=== PATIENT | female | born 1980 | race Caucasian/White ===

== ENCOUNTER → 2018-04-15 14:57 | Outpatient (CLI) | payer MEDICARE, MEDICAID, SELFPAY ==
[2018-04-15 17:21] LABS: T3 Uptake 36 % (30-39); T4 Free Direct 0.74 ng/dL (0.76-1.46)
== END ==
PROVIDERS: Family Provider Family Medicine Geriatric Medicine; PCP Family Medicine Geriatric Medicine; Visit Provider Family Medicine Geriatric Medicine
DX: E03.9 Hypothyroidism, unspecified (principal)
CPT/HCPCS: 36415; 84439; 84443; 84479

== ENCOUNTER → 2018-04-30 08:56 | Outpatient (CLI) | payer MEDICARE, MEDICAID, SELFPAY ==
--- NOTE | 2018-04-30 08:56 | DT_ITS ---
This patient was seen during an EMR downtime April 26, 2018 - May 03, 2018. This patient may have a combination of paper and electronic documentation or all paper documentation. All documentation is viewable within the e-chart portion of [facility] for each patient visit.
[2018-04-30 14:49] LABS: Thyroid Stim Hormone (TSH) 3.06 uIU/mL (0.358-3.74)
== END ==
PROVIDERS: Family Provider Family Medicine Geriatric Medicine; PCP Family Medicine Geriatric Medicine; Visit Provider Family Medicine Geriatric Medicine
DX: E03.9 Hypothyroidism, unspecified (principal)
CPT/HCPCS: 36415; 84443

== ENCOUNTER → 2018-05-13 10:38 | Outpatient (CLI) | payer MEDICARE, MEDICAID, SELFPAY ==
[2018-05-13 13:09] LABS: Valproic Acid (Depakene) Level 80 ug/mL (50-100)
== END ==
PROVIDERS: Family Provider Family Medicine Geriatric Medicine; PCP Family Medicine Geriatric Medicine; Visit Provider Psychiatry & Neurology Psychiatry
DX: Z79.899 Other long term (current) drug therapy (principal)
CPT/HCPCS: 36415; 80164

== ENCOUNTER → 2019-09-22 09:15 | Outpatient (CLI) | payer MEDICARE, MEDICAID, SELFPAY ==
[2019-09-22 12:40] LABS: Absolute Lymphocyte Count 1.31 X10^3/uL (0.83-4.51); Absolute Neutrophil Count 4.1 X10^3/uL (2.0-7.7); Basophil# 0.03 X10^3/uL; Basophil% 0.5 % (0-1); Eosinophil# 0.14 X10^3/uL; Eosinophils% 2.3 % (0-5); Hematocrit 37.6 % (37-47); Lymphocyte # 1.31 X10^3/ul (4.0); Lymphocyte % 21.3 % (19-41); Mean Corp Hgb Conc 34.6 g/dL (32-36); Mean Corpuscular Hgb 30.9 pg (27.0-32.0); Mean Corpuscular Volume 89.3 fL (81-99); Mean Platelet Vol. 9.6 fl (6.2-12.0); Monocyte# 0.55 X10^3/uL; NRBC Flagged by Analyzer 0 % (0-5); Neutrophil # 4.07 X10^3/uL (2.7-7.7); Neutrophil % 66.2 % (47-70); Platelet Count 315 K/mm3 (150-450); RBC Distribution Width CV 11.6 % (11.6-14.6); RBC Distribution Width SD 37.3 fl (35.1-43.9); Red Blood Count 4.21 M/mm3 (4.2-5.4); White Blood Count 6.1 K/mm3 (4.4-11.0)
[2019-09-22 12:50] LABS: AST(SGOT) 15 U/L (15-37); Alanine Aminotransfer ALT/SGPT 25 U/L (13-56); Albumin, Serum 3.4 g/dL (3.2-5.0); Alkaline Phosphatase 69 U/L (45-117); Anion Gap 10 (5-15); BUN 11 mg/dL (7-18); BUN/Creat Ratio 19.4 RATIO (10-20); Calcium,Total 8.7 mg/dL (8.5-10.1); Chloride 94 mmol/L (98-107); Creatinine, Serum 0.57 mg/dL (0.55-1.02); EST Glomerular Filtration Rate 125 mL/min (>60); Est Glom Filt Rate - Afr Amer 152 mL/min (>60); Globulin 3.4 g/dL (2.2-4.2); Glucose 75 mg/dL (74-106); Potassium 4.4 mmol/L (3.5-5.1); Protein, Total 6.8 g/dL (6.4-8.2); Sodium Level 131 mmol/L (136-145)
[2019-09-22 13:04] LABS: Valproic Acid (Depakene) Level 32 ug/mL (50-100)
== END ==
PROVIDERS: Family Provider Family Medicine Geriatric Medicine; PCP Family Medicine Geriatric Medicine
DX: F31.9 Bipolar disorder, unspecified (principal); Z79.899 Other long term (current) drug therapy
CPT/HCPCS: 36415; 80053; 80164; 85025

== ENCOUNTER → 2019-11-21 11:59 | Outpatient (CLI) | payer MEDICARE, MEDICAID, SELFPAY ==
[2017-12-17 08:49] VITALS: BMI 43.7
[2019-11-21 12:59] LABS: Absolute Lymphocyte Count 1.54 X10^3/uL (0.83-4.51); Basophil# 0.02 X10^3/uL; Basophil% 0.4 % (0-1); Eosinophil# 0.03 X10^3/uL; Eosinophils% 0.6 % (0-5); Hematocrit 38.4 % (37-47); Hemoglobin 13.3 g/dL (12.0-15.0); Lymphocyte # 1.54 X10^3/ul (4.0); Lymphocyte % 31.2 % (19-41); Mean Corp Hgb Conc 34.6 g/dL (32-36); Mean Corpuscular Hgb 30.5 pg (27.0-32.0); Mean Corpuscular Volume 88.1 fL (81-99); Mean Platelet Vol. 9.7 fl (6.2-12.0); Monocyte# 0.35 X10^3/uL; Monocyte% 7.1 % (0-10); NRBC Flagged by Analyzer 0 % (0-5); Neutrophil # 2.98 X10^3/uL (2.7-7.7); Neutrophil % 60.3 % (47-70); POSITIVE MORPHOLOGY YES; Platelet Count 339 K/mm3 (150-450); RBC Distribution Width CV 11.8 % (11.6-14.6); RBC Distribution Width SD 37.8 fl (35.1-43.9); Red Blood Count 4.36 M/mm3 (4.2-5.4); White Blood Count 4.9 K/mm3 (4.4-11.0)
[2019-11-21 13:03] LABS: Differential Indicated SCAN CRITERIA MET
[2019-11-21 13:24] LABS: ALB/GLOB Ratio 1.1 RATIO (0.9-2.4); AST(SGOT) 20 U/L (15-37); Alanine Aminotransfer ALT/SGPT 27 U/L (13-56); Albumin, Serum 3.6 g/dL (3.2-5.0); Alkaline Phosphatase 64 U/L (45-117); Anion Gap 6 (5-15); BUN 9 mg/dL (7-18); BUN/Creat Ratio 13.2 RATIO (10-20); Calcium,Total 8.9 mg/dL (8.5-10.1); Chloride 99 mmol/L (98-107); Creatinine, Serum 0.68 mg/dL (0.55-1.02); EST Glomerular Filtration Rate 102 mL/min (>60); Est Glom Filt Rate - Afr Amer 123 mL/min (>60); Globulin 3.3 g/dL (2.2-4.2); Glucose 83 mg/dL (74-106); Potassium 4.4 mmol/L (3.5-5.1); Protein, Total 6.9 g/dL (6.4-8.2); Sodium Level 132 mmol/L (136-145); Thyroid Stim Hormone (TSH) 2.19 uIU/mL (0.358-3.74)
[2019-11-21 13:25] LABS: Vitamin D,25 Hydroxy 28.3 ng/mL (29.95-100.01)
[2019-11-21 13:33] LABS: Atypical Lymphocyte 2+ %; Differential Comment SCANNED
== END ==
PROVIDERS: Family Provider Family Medicine Geriatric Medicine; PCP Family Medicine Geriatric Medicine; Visit Provider Family Medicine Geriatric Medicine
DX: E55.9 Vitamin D deficiency, unspecified (principal); I10 Essential (primary) hypertension
CPT/HCPCS: 36415; 80053; 82306; 84443; 85025

== ENCOUNTER → 2020-02-02 | Outpatient (CLI) | payer MEDICARE, MEDICAID, SELFPAY ==
[2020-02-02 10:25] VITALS: BMI 43.7
[2020-02-07 11:58] LABS: HPV APTIMA, High Risk Negative (Negative)
== END | disposition home or self-care (01) ==
LOC: LABSPEC 16:03
PROVIDERS: PCP Family Medicine Geriatric Medicine; Referring Provider Nurse Practitioner Women's Health; Visit Provider Nurse Practitioner Women's Health
DX: Z12.4 Encounter for screening for malignant neoplasm of cervix (principal)
CPT/HCPCS: 87624; 88175; G0145

== ENCOUNTER → 2020-08-22 | Outpatient (CLI) | payer MEDICARE, MEDICAID, SELFPAY ==
[2020-02-02 10:25] VITALS: BMI 43.7
[2020-08-22 08:26] LABS: Absolute Lymphocyte Count 2.09 X10^3/uL (0.83-4.51); Absolute Neutrophil Count 5.3 X10^3/uL (2.0-7.7); Basophil# 0.03 X10^3/uL; Basophil% 0.4 % (0-1); Eosinophil# 0.25 X10^3/uL; Hemoglobin 13.6 g/dL (12.0-15.0); Lymphocyte # 2.09 X10^3/ul (4.0); Lymphocyte % 25.4 % (19-41); Mean Corpuscular Hgb 30.6 pg (27.0-32.0); Mean Corpuscular Volume 90.1 fL (81-99); Mean Platelet Vol. 9.3 fl (6.2-12.0); Monocyte# 0.47 X10^3/uL; Monocyte% 5.7 % (0-10); NRBC Flagged by Analyzer 0 % (0-5); Neutrophil # 5.31 X10^3/uL (2.7-7.7); Neutrophil % 64.6 % (47-70); Platelet Count 333 K/mm3 (150-450); RBC Distribution Width CV 11.7 % (11.6-14.6); RBC Distribution Width SD 38.2 fl (35.1-43.9); Red Blood Count 4.44 M/mm3 (4.2-5.4); White Blood Count 8.2 K/mm3 (4.4-11.0)
[2020-08-22 08:56] LABS: Valproic Acid (Depakene) Level 39 ug/mL (50-100)
[2020-08-22 08:59] LABS: AST(SGOT) 15 U/L (15-37); Alanine Aminotransfer ALT/SGPT 22 U/L (13-56); Albumin, Serum 3.5 g/dL (3.2-5.0); Alkaline Phosphatase 70 U/L (45-117); Anion Gap 3 (5-15); BUN 9 mg/dL (7-18); BUN/Creat Ratio 15.1 RATIO (10-20); Calcium,Total 8.9 mg/dL (8.5-10.1); Chloride 98 mmol/L (98-107); EST Glomerular Filtration Rate 118 mL/min (>60); Est Glom Filt Rate - Afr Amer 143 mL/min (>60); Globulin 3.5 g/dL (2.2-4.2); Glucose 91 mg/dL (74-106); Potassium 4.1 mmol/L (3.5-5.1); Sodium Level 131 mmol/L (136-145)
== END | disposition home or self-care (01) ==
LOC: LAB 07:36
PROVIDERS: PCP Family Medicine Geriatric Medicine; Visit Provider Registered Nurse
DX: F31.9 Bipolar disorder, unspecified (principal); Z79.899 Other long term (current) drug therapy
CPT/HCPCS: 36415; 80053; 80164; 85025

== ENCOUNTER → 2020-11-22 09:10 | Outpatient (CLI) | payer MEDICARE, MEDICAID, SELFPAY ==
[2020-02-02 10:25] VITALS: BMI 43.7
[2020-11-22 12:21] LABS: Absolute Lymphocyte Count 1.57 X10^3/uL (0.83-4.51); Absolute Neutrophil Count 5.1 X10^3/uL (2.0-7.7); Basophil# 0.03 X10^3/uL; Basophil% 0.4 % (0-1); Eosinophil# 0.19 X10^3/uL; Eosinophils% 2.5 % (0-5); Hematocrit 39.4 % (37-47); Hemoglobin 13.2 g/dL (12.0-15.0); Lymphocyte # 1.57 X10^3/ul (4.0); Mean Corp Hgb Conc 33.5 g/dL (32-36); Mean Corpuscular Hgb 30.3 pg (27.0-32.0); Mean Corpuscular Volume 90.6 fL (81-99); Mean Platelet Vol. 9.6 fl (6.2-12.0); Monocyte# 0.48 X10^3/uL; Monocyte% 6.4 % (0-10); NRBC Flagged by Analyzer 0 % (0-5); Neutrophil # 5.13 X10^3/uL (2.7-7.7); Neutrophil % 68.9 % (47-70); Platelet Count 348 K/mm3 (150-450); RBC Distribution Width CV 11.9 % (11.6-14.6); RBC Distribution Width SD 39.3 fl (35.1-43.9); Red Blood Count 4.35 M/mm3 (4.2-5.4); White Blood Count 7.5 K/mm3 (4.4-11.0)
[2020-11-22 12:43] LABS: Vitamin D,25 Hydroxy 20.8 ng/mL
[2020-11-22 12:53] LABS: AST(SGOT) 13 U/L (15-37); Alanine Aminotransfer ALT/SGPT 24 U/L (13-56); Albumin, Serum 3.5 g/dL (3.2-5.0); Alkaline Phosphatase 68 U/L (45-117); Anion Gap 5 (5-15); BUN 11 mg/dL (7-18); BUN/Creat Ratio 15.9 RATIO (10-20); Calcium,Total 9.1 mg/dL (8.5-10.1); Chloride 100 mmol/L (98-107); Creatinine, Serum 0.69 mg/dL (0.55-1.02); EST Glomerular Filtration Rate 99 mL/min (>60); Est Glom Filt Rate - Afr Amer 120 mL/min (>60); Globulin 3.5 g/dL (2.2-4.2); Glucose 69 mg/dL (74-106); Potassium 4.2 mmol/L (3.5-5.1); Sodium Level 135 mmol/L (136-145); Thyroid Stim Hormone (TSH) 3.07 uIU/mL (0.358-3.74)
== END ==
PROVIDERS: PCP Family Medicine Geriatric Medicine; Visit Provider Family Medicine Geriatric Medicine
DX: E55.9 Vitamin D deficiency, unspecified (principal); R53.83 Other fatigue
CPT/HCPCS: 36415; 80053; 82306; 84443; 85025

== ENCOUNTER 2021-11-26 09:27 | Outpatient (CLI) | payer MEDICARE, MEDICAID, SELFPAY ==
[2021-11-26 14:11] LABS: Absolute Lymphocyte Count 1.69 X10^3/uL (0.83-4.51); Absolute Neutrophil Count 6.4 X10^3/uL (2.0-7.7); Basophil# 0.04 X10^3/uL; Basophil% 0.4 % (0-1); Eosinophil# 0.21 X10^3/uL; Eosinophils% 2.3 % (0-5); Hematocrit 39.9 % (37-47); Hemoglobin 13.5 g/dL (12.0-15.0); Lymphocyte # 1.69 X10^3/ul (0.83-4.51); Lymphocyte % 18.9 % (19-41); Mean Corp Hgb Conc 33.8 g/dL (32-36); Mean Corpuscular Hgb 30.2 pg (27.0-32.0); Mean Corpuscular Volume 89.3 fL (81-99); Mean Platelet Vol. 9.7 fl (6.2-12.0); Monocyte# 0.59 X10^3/uL; Monocyte% 6.6 % (0-10); NRBC Flagged by Analyzer 0 % (0-5); Neutrophil # 6.36 X10^3/uL (2.7-7.7); Neutrophil % 71.1 % (47-70); Platelet Count 388 K/mm3 (150-450); RBC Distribution Width CV 12.6 % (11.6-14.6); RBC Distribution Width SD 41.4 fl (35.1-43.9); Red Blood Count 4.47 M/mm3 (4.2-5.4)
[2021-11-26 14:25] LABS: Vitamin D,25 Hydroxy 34.8 ng/mL
[2021-11-26 14:32] LABS: AST(SGOT) 17 U/L (15-37); Alanine Aminotransfer ALT/SGPT 30 U/L (13-56); Albumin, Serum 3.8 g/dL (3.2-5.0); Alkaline Phosphatase 77 U/L (45-117); Anion Gap 8 (5-15); BUN 12 mg/dL (7-18); BUN/Creat Ratio 18.1 RATIO (10-20); Calcium,Total 9.3 mg/dL (8.5-10.1); Chloride 95 mmol/L (98-107); Creatinine, Serum 0.66 mg/dL (0.55-1.02); EST Glomerular Filtration Rate 104 mL/min (>60); Est Glom Filt Rate - Afr Amer 126 mL/min (>60); Globulin 3.7 g/dL (2.2-4.2); Glucose 83 mg/dL (74-106); Potassium 4.2 mmol/L (3.5-5.1); Protein, Total 7.5 g/dL (6.4-8.2); Sodium Level 134 mmol/L (136-145); Thyroid Stim Hormone (TSH) 3.08 uIU/mL (0.358-3.74)
== END 2021-11-26 23:59 | disposition short-term general hospital (02) ==
LOC: POLAB3 09:28
PROVIDERS: PCP Family Medicine Geriatric Medicine; Visit Provider Family Medicine Geriatric Medicine
DX: E55.9 Vitamin D deficiency, unspecified (principal); I10 Essential (primary) hypertension
CPT/HCPCS: 36415; 80053; 82306; 84443; 85025

== ENCOUNTER → 2022-12-02 | Outpatient (CLI) | payer MEDICARE, MEDICAID, SELFPAY ==
[2022-12-02 13:04] LABS: Absolute Lymphocyte Count 1.79 X10^3/uL (0.83-4.51); Absolute Neutrophil Count 4.4 X10^3/uL (2.0-7.7); Basophil# 0.03 X10^3/uL; Basophil% 0.4 % (0-1); Eosinophil# 0.21 X10^3/uL; Hematocrit 40.9 % (37-47); Hemoglobin 14.2 g/dL (12.0-15.0); Lymphocyte # 1.79 X10^3/ul (0.83-4.51); Lymphocyte % 25.5 % (19-41); Mean Corp Hgb Conc 34.7 g/dL (32-36); Mean Corpuscular Hgb 30.5 pg (27.0-32.0); Mean Platelet Vol. 9.6 fl (6.2-12.0); Monocyte# 0.52 X10^3/uL; Monocyte% 7.4 % (0-10); NRBC Flagged by Analyzer 0 % (0-5); Neutrophil % 62.8 % (47-70); Platelet Count 364 K/mm3 (150-450); RBC Distribution Width CV 12.5 % (11.6-14.6); RBC Distribution Width SD 40.3 fl (35.1-43.9); Red Blood Count 4.65 M/mm3 (4.2-5.4)
[2022-12-02 13:21] LABS: Vitamin D,25 Hydroxy 23.7 ng/mL
[2022-12-02 13:33] LABS: AST(SGOT) 15 U/L (15-37); Alanine Aminotransfer ALT/SGPT 28 U/L (13-56); Albumin, Serum 3.7 g/dL (3.2-5.0); Alkaline Phosphatase 73 U/L (45-117); Anion Gap 8 (5-15); BUN 15 mg/dL (7-18); BUN/Creat Ratio 20.9 RATIO (10-20); Calcium,Total 9.5 mg/dL (8.5-10.1); Chloride 95 mmol/L (98-107); Creatinine, Serum 0.72 mg/dL (0.55-1.02); EST Glomerular Filtration Rate 95 mL/min (>60); Est Glom Filt Rate - Afr Amer 114 mL/min (>60); Globulin 3.8 g/dL (2.2-4.2); Glucose 94 mg/dL (74-106); Potassium 3.8 mmol/L (3.5-5.1); Protein, Total 7.5 g/dL (6.4-8.2); Sodium Level 135 mmol/L (136-145); Thyroid Stim Hormone (TSH) 3.32 uIU/mL (0.358-3.74)
== END | disposition home or self-care (01) ==
PROVIDERS: PCP Family Medicine Geriatric Medicine; Visit Provider Family Medicine Geriatric Medicine
DX: R53.83 Other fatigue (principal); E55.9 Vitamin D deficiency, unspecified
CPT/HCPCS: 36415; 80053; 82306; 84443; 85025

== ENCOUNTER → 2023-06-25 | Outpatient (CLI) | payer MEDICARE, MEDICAID, SELFPAY ==
[2023-06-25 18:50] LABS: AST(SGOT) 15 U/L (15-37); Alanine Aminotransfer ALT/SGPT 23 U/L (13-56); Albumin, Serum 3.5 g/dL (3.2-5.0); Alkaline Phosphatase 78 U/L (45-117); Anion Gap 6 (5-15); BUN 9 mg/dL (7-18); BUN/Creat Ratio 13.7 RATIO (10-20); Calcium,Total 9.3 mg/dL (8.5-10.1); Chloride 89 mmol/L (98-107); Creatinine, Serum 0.66 mg/dL (0.55-1.02); EST Glomerular Filtration Rate 104 mL/min (>60); Est Glom Filt Rate - Afr Amer 126 mL/min (>60); Globulin 3.6 g/dL (2.2-4.2); Glucose 100 mg/dL (74-106); Potassium 4.1 mmol/L (3.5-5.1); Protein, Total 7.1 g/dL (6.4-8.2); Sodium Level 124 mmol/L (136-145); Thyroid Stim Hormone (TSH) 2.21 uIU/mL (0.358-3.74)
== END | disposition home or self-care (01) ==
PROVIDERS: PCP Family Medicine Geriatric Medicine; Visit Provider Family Medicine Geriatric Medicine
DX: E03.9 Hypothyroidism, unspecified (principal); R53.83 Other fatigue
CPT/HCPCS: 36415; 80053; 83036; 84443

== ENCOUNTER → 2023-06-30 | Outpatient (CLI) | payer MEDICARE, MEDICAID, SELFPAY ==
[2023-06-30 12:47] LABS: Absolute Lymphocyte Count 2.09 X10^3/uL (0.83-4.51); Basophil# 0.02 X10^3/uL; Basophil% 0.3 % (0-1); Eosinophil# 0.17 X10^3/uL; Eosinophils% 2.5 % (0-5); Hematocrit 38.8 % (37-47); Hemoglobin 13.4 g/dL (12.0-15.0); Lymphocyte # 2.09 X10^3/ul (0.83-4.51); Lymphocyte % 30.5 % (19-41); Mean Corp Hgb Conc 34.5 g/dL (32-36); Mean Corpuscular Hgb 30.5 pg (27.0-32.0); Mean Corpuscular Volume 88.4 fL (81-99); Monocyte# 0.54 X10^3/uL; Monocyte% 7.9 % (0-10); NRBC Flagged by Analyzer 0 % (0-5); Neutrophil # 3.99 X10^3/uL (2.7-7.7); Neutrophil % 58.2 % (47-70); Platelet Count 359 K/mm3 (150-450); RBC Distribution Width CV 12.2 % (11.6-14.6); RBC Distribution Width SD 39.3 fl (35.1-43.9); Red Blood Count 4.39 M/mm3 (4.2-5.4); White Blood Count 6.9 K/mm3 (4.4-11.0)
[2023-06-30 13:51] LABS: Hemoglobin A1c 5.5 % (3.8-5.6)
== END | disposition home or self-care (01) ==
LOC: POLAB3 07-02 11:05
PROVIDERS: PCP Family Medicine Geriatric Medicine; Visit Provider Family Medicine Geriatric Medicine
DX: E03.9 Hypothyroidism, unspecified (principal); R53.83 Other fatigue
CPT/HCPCS: 83036; 85025

== ENCOUNTER → 2023-12-08 | Outpatient (CLI) | payer MEDICARE, MEDICAID, SELFPAY ==
[2023-12-08 12:51] LABS: Absolute Lymphocyte Count 1.81 X10^3/uL (0.83-4.51); Absolute Neutrophil Count 4.9 X10^3/uL (2.0-7.7); Basophil# 0.04 X10^3/uL; Basophil% 0.5 % (0-1); Eosinophil# 0.17 X10^3/uL; Eosinophils% 2.3 % (0-5); Hematocrit 40.9 % (37-47); Lymphocyte # 1.81 X10^3/ul (0.83-4.51); Lymphocyte % 24.4 % (19-41); Mean Corp Hgb Conc 34.2 g/dL (32-36); Mean Corpuscular Hgb 30.2 pg (27.0-32.0); Mean Corpuscular Volume 88.3 fL (81-99); Mean Platelet Vol. 9.4 fl (6.2-12.0); Monocyte# 0.44 X10^3/uL; Monocyte% 5.9 % (0-10); NRBC Flagged by Analyzer 0 % (0-5); Neutrophil # 4.92 X10^3/uL (2.7-7.7); Neutrophil % 66.5 % (47-70); Platelet Count 357 K/mm3 (150-450); RBC Distribution Width CV 12.2 % (11.6-14.6); RBC Distribution Width SD 39.5 fl (35.1-43.9); Red Blood Count 4.63 M/mm3 (4.2-5.4); White Blood Count 7.4 K/mm3 (4.4-11.0)
[2023-12-08 12:55] LABS: Urine Sodium 100 mmol/L (Not Establ.)
[2023-12-08 13:11] LABS: Osmolality, Serum 277 mOsm/KG (275-295); Osmolality, Urine 671 mOsm/KG
[2023-12-08 13:23] LABS: ALB/GLOB Ratio 1.1 RATIO (0.9-2.4); AST(SGOT) 13 U/L (15-37); Alanine Aminotransfer ALT/SGPT 19 U/L (13-56); Albumin, Serum 3.6 g/dL (3.2-5.0); Alkaline Phosphatase 71 U/L (45-117); Anion Gap 8 (5-15); BUN 10 mg/dL (7-18); BUN/Creat Ratio 16.8 RATIO (10-20); Calcium,Total 9.1 mg/dL (8.5-10.1); Chloride 98 mmol/L (98-107); Cholesterol 234 mg/dL (200); EST Glomerular Filtration Rate 116 mL/min (>60); Est Glom Filt Rate - Afr Amer 140 mL/min (>60); Globulin 3.4 g/dL (2.2-4.2); Glucose 79 mg/dL (74-106); High Density Lipoprotein 41 mg/dL; Potassium 3.9 mmol/L (3.5-5.1); Sodium Level 134 mmol/L (136-145); Triglycerides 175 mg/dL; Very Low Density Lipoprotein 35 mg/dL (5-40)
== END | disposition home or self-care (01) ==
PROVIDERS: PCP Family Medicine Geriatric Medicine; Visit Provider Family Medicine Geriatric Medicine
DX: E87.1 Hypo-osmolality and hyponatremia (principal); I10 Essential (primary) hypertension; E78.5 Hyperlipidemia, unspecified
CPT/HCPCS: 36415; 80053; 80061; 83930; 83935; 84300; 84443; 85025

== ENCOUNTER → 2024-03-03 | Outpatient (CLI) | payer MEDICARE, MEDICAID, SELFPAY ==
--- NOTE | 2024-03-03 08:11 | BI_ITS ---
MAMMOGRAPHY - BILATERAL SCREENING REASON FOR EXAM: Female, 43 years old. Routine annual screening examination. PERTINENT HISTORY: Non-contributory. TECHNIQUE: Digital bilateral breast rubin (3D mammographic acquisition) in the CC and MLO projections. 2-D mediolateral oblique (MLO) and craniocaudad (CC) views of both breasts were obtained. CAD: Full Field Digital Mammography with Computer Added Detection was performed. COMPARISON: None. Baseline examination. FINDINGS: Breast Composition: The breasts are almost entirely fatty. There are no dominant masses or suspicious calcifications. There is a 9.1 mm x 5.7 mm well-defined nodule with a central fatty hilum in the upper lateral mid depth of the right breast. This most likely represents an intramammary lymph node. There is also evidence of benign appearing bilateral axillary lymph nodes. No other significant abnormalities are identified. BI/SCRN MAMM (CAD)W/RUBIN BILAT IMPRESSION: Negative screening mammogram. Yearly followup mammogram recommended. (A) ASSESSMENT CATEGORY: BIRADS Category 2: Benign. A letter regarding these results will be sent to the patient by the facility within 30 days. Approximately 10% of breast cancers are not detected by mammography. A normal mammogram should not delay biopsy of a clinically suspicious abnormality. [id number] Electronically Signed: Rajesh Hua MD at 10:21 EDT ,
== END | disposition home or self-care (01) ==
LOC: OPBI 08:10
PROVIDERS: PCP Family Medicine Geriatric Medicine; Referring Provider Family Medicine Geriatric Medicine; Visit Provider Family Medicine Geriatric Medicine
DX: Z12.31 Encounter for screening mammogram for malignant neoplasm of breast (principal)
CPT/HCPCS: 77063; 77067

== ENCOUNTER → 2024-09-01 | Outpatient (CLI) | payer MEDICARE, MEDICAID, SELFPAY ==
[2024-09-01 11:05] LABS: Absolute Lymphocyte Count 1.68 X10^3/uL (0.83-4.51); Absolute Neutrophil Count 3.9 X10^3/uL (2.0-7.7); Basophil# 0.04 X10^3/uL; Basophil% 0.6 % (0-1); Eosinophils% 3.2 % (0-5); Hematocrit 39.3 % (37-47); Hemoglobin 12.9 g/dL (12.0-15.0); Lymphocyte # 1.68 X10^3/ul (0.83-4.51); Lymphocyte % 27.1 % (19-41); Mean Corp Hgb Conc 32.8 g/dL (32-36); Mean Corpuscular Hgb 29.6 pg (27.0-32.0); Mean Corpuscular Volume 90.1 fL (81-99); Mean Platelet Vol. 8.9 fl (6.2-12.0); Monocyte# 0.32 X10^3/uL; Monocyte% 5.2 % (0-10); NRBC Flagged by Analyzer 0 % (0-5); Neutrophil % 62.8 % (47-70); Platelet Count 345 K/mm3 (150-450); RBC Distribution Width SD 39.4 fl (35.1-43.9); Red Blood Count 4.36 M/mm3 (4.2-5.4); White Blood Count 6.2 K/mm3 (4.4-11.0)
[2024-09-01 11:27] LABS: Anion Gap 5 (5-15); BUN 9 mg/dL (7-18); BUN/Creat Ratio 15.2 RATIO (10-20); Calcium,Total 9.1 mg/dL (8.5-10.1); Chloride 99 mmol/L (98-107); Creatinine, Serum 0.59 mg/dL (0.55-1.02); EST Glomerular Filtration Rate 116 mL/min (>60); Est Glom Filt Rate - Afr Amer 141 mL/min (>60); Glucose 136 mg/dL (74-106); Sodium Level 135 mmol/L (136-145)
[2024-09-01 17:04] LABS: Hemoglobin A1c 5.5 % (3.8-5.6)
== END | disposition home or self-care (01) ==
LOC: POLAB3 10:54
PROVIDERS: PCP Family Medicine Geriatric Medicine; Visit Provider Family Medicine Geriatric Medicine
DX: R73.9 Hyperglycemia, unspecified (principal); I10 Essential (primary) hypertension
CPT/HCPCS: 36415; 80048; 83036; 85025

== ENCOUNTER → 2024-11-14 | Outpatient (CLI) | payer MEDICARE, MEDICAID, SELFPAY ==
[2024-11-14 12:28] LABS: Valproic Acid (Depakene) Level 45 ug/mL (50-100)
[2024-11-18 14:07] LABS: Lamotrigine (Lamictal) Level 10.4 ug/mL (2.0-20.0)
== END | disposition home or self-care (01) ==
PROVIDERS: PCP Family Medicine Geriatric Medicine; Referring Provider Nurse Practitioner Psychiatric/Mental Health; Visit Provider Nurse Practitioner Psychiatric/Mental Health
DX: F31.9 Bipolar disorder, unspecified (principal)
CPT/HCPCS: 36415; 80164; 82542

== ENCOUNTER → 2025-01-05 | Outpatient (CLI) | payer MEDICARE, MEDICAID, SELFPAY ==
[2025-01-05 13:20] LABS: Absolute Lymphocyte Count 1.97 X10^3/uL (0.83-4.51); Absolute Neutrophil Count 3.9 X10^3/uL (2.0-7.7); Basophil# 0.03 X10^3/uL; Basophil% 0.5 % (0-1); Eosinophil# 0.18 X10^3/uL; Eosinophils% 2.8 % (0-5); Hematocrit 40.3 % (37-47); Hemoglobin 13.5 g/dL (12.0-15.0); Lymphocyte # 1.97 X10^3/ul (0.83-4.51); Lymphocyte % 30.2 % (19-41); Mean Corp Hgb Conc 33.5 g/dL (32-36); Mean Corpuscular Hgb 29.6 pg (27.0-32.0); Mean Corpuscular Volume 88.4 fL (81-99); Monocyte# 0.41 X10^3/uL; Monocyte% 6.3 % (0-10); NRBC Flagged by Analyzer 0 % (0-5); Neutrophil # 3.89 X10^3/uL (2.7-7.7); Neutrophil % 59.6 % (47-70); Platelet Count 371 K/mm3 (150-450); RBC Distribution Width CV 12.2 % (11.6-14.6); RBC Distribution Width SD 39.9 fl (35.1-43.9); Red Blood Count 4.56 M/mm3 (4.2-5.4); White Blood Count 6.5 K/mm3 (4.4-11.0)
[2025-01-05 13:50] LABS: Vitamin D,25 Hydroxy 26.1 ng/mL
[2025-01-05 13:58] LABS: AST(SGOT) 16 U/L (15-37); Alanine Aminotransfer ALT/SGPT 23 U/L (13-56); Albumin, Serum 3.6 g/dL (3.2-5.0); Alkaline Phosphatase 68 U/L (45-117); Anion Gap 7 (5-15); BUN 9 mg/dL (7-18); BUN/Creat Ratio 14.2 RATIO (10-20); Calcium,Total 9.7 mg/dL (8.5-10.1); Chloride 96 mmol/L (98-107); Cholesterol 224 mg/dL (200); Creatinine, Serum 0.63 mg/dL (0.55-1.02); EST Glomerular Filtration Rate 108 mL/min (>60); Est Glom Filt Rate - Afr Amer 131 mL/min (>60); Globulin 3.5 g/dL (2.2-4.2); Glucose 83 mg/dL (74-106); High Density Lipoprotein 42 mg/dL; Protein, Total 7.1 g/dL (6.4-8.2); Sodium Level 136 mmol/L (136-145); Triglycerides 181 mg/dL; Very Low Density Lipoprotein 36 mg/dL (5-40)
== END | disposition home or self-care (01) ==
LOC: LAB 12:35
PROVIDERS: PCP Family Medicine Geriatric Medicine; Referring Provider Family Medicine Geriatric Medicine; Visit Provider Family Medicine Geriatric Medicine
DX: I10 Essential (primary) hypertension (principal); E55.9 Vitamin D deficiency, unspecified; E78.5 Hyperlipidemia, unspecified
CPT/HCPCS: 36415; 80053; 80061; 82306; 84443; 85025

== ENCOUNTER → 2025-03-15 | Outpatient (CLI) | payer MEDICARE, MEDICAID, SELFPAY ==
[2025-03-15 13:18] LABS: Valproic Acid (Depakene) Level 36 ug/mL (50-100)
[2025-03-17 14:08] LABS: Lamotrigine (Lamictal) Level 10.6 ug/mL (2.0-20.0)
== END | disposition home or self-care (01) ==
PROVIDERS: PCP Family Medicine Geriatric Medicine; Referring Provider Nurse Practitioner Psychiatric/Mental Health; Visit Provider Nurse Practitioner Psychiatric/Mental Health
DX: F31.9 Bipolar disorder, unspecified (principal)
CPT/HCPCS: 36415; 80164; 82542

== ENCOUNTER → 2025-03-16 | Outpatient (CLI) | payer MEDICARE, MEDICAID, SELFPAY ==
[2025-03-20 15:08] LABS: HPV APTIMA, High Risk Negative (Negative)
== END | disposition home or self-care (01) ==
LOC: BWCLAB 11:13
PROVIDERS: PCP Family Medicine Geriatric Medicine; Referring Provider Nurse Practitioner Women's Health; Visit Provider Nurse Practitioner Women's Health
DX: Z12.4 Encounter for screening for malignant neoplasm of cervix (principal)
CPT/HCPCS: 87624; 88175; G0145

== ENCOUNTER → 2025-05-05 | Outpatient (CLI) | payer MEDICARE, MEDICAID, SELFPAY ==
--- NOTE | 2025-05-05 10:45 | BI_ITS ---
EXAM: SCRN MAMM (CAD)W/RUBIN BILAT 05/05/2025 CLINICAL HISTORY: F, Age 44 y/o , SCREENING FOR BREAST CANCER TECHNIQUE: Bilateral screening digital breast tomosynthesis with 2D and 3D images. Computer aided detection. COMPARISON: Prior exam(s) dated 03/03/2024. FINDINGS: TISSUE DENSITY: The breast tissue is composed of scattered area of fibroglandular density.. Bilateral Breast Mammographic Findings: No significant masses, calcifications or other abnormalities are identified. BI/SCRN MAMM (CAD)W/RUBIN BILAT IMPRESSION: Right Breast: BIRADS 1 NEGATIVE. Left Breast: BIRADS 1 NEGATIVE. OVERALL FINAL ASSESSMENT: BIRADS 1 NEGATIVE. RECOMMENDATION: Routine annual follow-up in 1 Year A letter with findings and recommendations will be mailed to the patient. Reading Location: [id number]
--- OUTSIDE RECORDS SUMMARY | 2025-05-05 18:02 | XMS RPT_ITS | CCD ---
Author Organization [facility] Care Team Providers Care Service Desk Associate Name Role Phone Vane Ramirez LPN N Unavailable [phone] Vane Ramirez LPN Unavailable Dr. Anthony Morris Chi Primary Care Provider Dr. Anthony Morris Chi Referring Provider Pricila COTTON PULLER, COTTON PULLER-C Emmy Attending Provider Arturo, Anthony Chi Primary Care Unavailable [place] COTTON PULLER, Emmy Attending Unavailable Arturo, Anthony Chi Referring Unavailable Arturo, Anthony Chi Primary Care Unavailable [place] COTTON PULLER, Emmy Attending Unavailable Pircila COTTON PULLER, Emmy Referring Unavailable Arturo, Anthony Chi Primary Care Unavailable Arturo, Anthony Chi Attending Unavailable Melara, Maria Referring Unavailable Melara, Maria Attending Unavailable Arturo, Anthony Chi Primary Care Unavailable Arturo, Anthony Chi Primary Care Unavailable Arturo, Anthony Chi Attending Unavailable Arturo, Anthony Chi Referring Unavailable Arturo, Anthony Chi Primary Care Unavailable Melara, Maria Referring Unavailable Melara, Maria Attending Unavailable Arturo, Anthony Chi Primary Care Unavailable Pricila COTTON PULLER, Emmy Attending Unavailable Pricila COTTON PULLER, Emmy Referring Unavailable Arturo, Anthony Chi Primary Care Unavailable Melara, Maria Attending Unavailable Melara, Maria Attending Unavailable Arturo, Anthony Chi Primary Care Unavailable Arturo, Anthony Chi Primary Care Unavailable Melara, Maria Attending Unavailable Arturo, Anthony Chi Primary Care Unavailable Melara, Maria Attending Unavailable Arturo, Anthony Chi Primary Care Unavailable Melara, Maria Attending Unavailable Allergies Allergy Classification Reported Allergen(s) Allergy Type Date of Onset Reaction(s) Facility (2 sources) RABEprazole drug allergy 05-14-2017 [facility] Work Phone: (5 sources) cefdinir Drug Allergy 07-23-2021 Hives [facility] (5 sources) RABEprazole Drug Allergy 07-23-2021 Other [facility] (1 source) cefdinir Drug Allergy 04-27-2025 [facility] (1 source) RABEprazole Drug Allergy 04-27-2025 [facility] Medications Current Medications Medication Drug Class(es) Dates Sig (Normalized) Sig (Original) clobetasol propionate 0.5 mg/ml topical cream (7 sources) Corticosteroid Start: 12-17-2017 Clobetasol Active 1 APPLIC TOPICAL ONCE December 17, 2017 1:00am Start: 05-14-2017 CLOBETASOL PRO PIONATE 0.05 % CREA PRN CLOBETASOL PROPIONATE [id number] Jamil LEDEZMA hydroCHLOROthiazide 12.5 mg / lisinopril 10 mg oral tablet (7 sources) Thiazide Diuretic, Angiotensin Converting Enzyme Inhibitor Start: 12-17-2017 take 1 tablet by mouth twice daily Lisinopril-Hydrochlorothiazide Active 1 TABLET PO TWICE A DAY December 17, 2017 1:00am Start: 05-14-2017 LISINOPRIL-HYD ROCHLOROTHIAZIDE 10-12.5 MG TABS QD LISINOPRIL-HYDROCHLOROTHIAZIDE [id number] Jamil LEDEZMA lamoTRIgine 100 mg oral tablet (12 sources) Mood Stabilizer, Anti-epileptic Agent Start: 02-02-2020 Lamotrigine (Lamictal) 100 mg tablet Active 150 MG PO February 02, 2020 11:24am Start: 12-17-2017 End: 02-02-2020 Lamotrigine (Lamictal) 100 m g tablet Discontinued PO December 17, 2017 1:00am February 02, 2020 11:28am Start: 05-14-2017 LAMICTAL 100 M G TABS BID LAMOTRIGINE [id number] Jamil LEDEZMA lisinopril 10 mg oral tablet (5 sources) Angiotensin Converting Enzyme Inhibitor Start: 07-23-2021 take 10 mg by mouth once daily Lisinopril Active 10 MG PO DAILY July 23, 2021 12:00am multivitamin,tx-ir on-minerals tablet (5 sources) Start: 12-17-2017 take 1 tablet by mouth once daily multivitamin,tx-i adam-minerals tablet Active 1 TABLET PO daily December 17, 2017 1:00am Start: 12-17-2017 take 1 tablet by josef th once daily multivitamin,ui-qdnm-[id number] tablet Act rodney 1 TABLET PO daily December 17, 2017 12:00am OXcarbazepine 300 mg oral tablet (17 sources) Anti-epileptic Agent Start: 07-23-2021 take 1 tablet by mouth twice daily Oxcarbazepine (Trileptal) 300 mg tablet Active 300 MG PO TWICE A DAY July 23, 2021 9:45am Start: 02-02-2020 End: 07-23-2021 take 2 tablets by mouth twice daily Oxcarbazepine (Trileptal) 300 mg tablet Discontinued 600 MG PO TWICE A DAY February 02, 2020 11:23am July 23, 2021 9:46am Start: 12-17-2017 End: 02-02-2020 take 1 tablet by mouth twice daily Oxcarbazepine (Trileptal) 300 mg tablet Discontinued 300 MG PO TWICE A DAY December 17, 2017 1:00am February 02, 2020 11:28am Start: 05-14-2017 TRILEPTAL 300 MG TABS BID OXCARBAZEPINE [id number] Jamil LEDEZMA spironolactone 25 mg oral tablet (5 sources) Aldosterone Antagonist Start: 02-02-2020 take 25 mg by mouth twice daily Spironolactone Active 25 MG PO TWICE A DAY February 02, 2020 12:00am divalproex sodium 500 mg delayed release oral tablet (7 sources) Mood Stabilizer, Anti-epileptic Agent Start: 12-17-2017 take 1 tablet by mouth twice daily Divalproex (Depakote) 500 mg tablet,delayed release (DR/EC) Active 500 MG PO TWICE A DAY December 17, 2017 1:00am Start: 05-14-2017 DEPAKOTE 500 M G TBEC take as directed DIVALPROEX SODIUM [id number] Jamil LEDEZMA Start: 05-14-2017 DEPAKOTE 500 M G TBEC take as directed DIVALPROEX SODIUM [id number] Jamil LEDEZMA Completed/Discontinued Medications Medication Drug Class(es) Dates Sig (Normalized) Sig (Original) 24 hr buPROPion hydrochloride 150 mg extended release oral tablet (7 sources) Aminoketone Start: 12-17-2017 End: 02-02-2020 take 150 mg by mouth once daily in the morning Bupropion Hcl Discontinued 150 MG PO EVERY MORNING December 17, 2017 1:00am February 02, 2020 11:27am Start: 05-14-2017 WELLBUTRIN SR 150 MG [id number] once daily BUPROPION HCL [id number] Jamil LEDEZMA citalopram 20 mg oral tablet (7 sources) Serotonin Reuptake Inhibitor Start: 12-17-2017 End: 02-02-2020 take 1 tablet by mouth once daily Citalopram (Celexa) 20 mg tablet Discontinued 20 MG PO daily December 17, 2017 1:00am February 02, 2020 11:28am Start: 05-14-2017 CELEXA 20 MG T ABS once daily CITALOPRAM HYDROBROMIDE [id number] Jamil LEDEZMA etonogestrel 68 mg drug implant (5 sources) Progestin Start: 12-17-2017 End: 02-02-2020 Etonogestrel (Nexplanon) 68 mg implant Discontinued 1 IMPLANT Subdermal ONCE December 17, 2017 1:00am February 02, 2020 11:46am fexofenadine / Pseudoephedrine (2 sources) alpha-Adrenergic Agonist, Histamine-1 Receptor Antagonist Start: 05-14-2017 JOLLY-D ALLERGY & CONGESTION 180-240 MG [id number] 1 tablet daily FEXOFENADINE-PSEUDOEP HEDRINE [id number] Jamil LEDEZMA Start: 05-14-2017 JOLLY-D GISSELLE RGY & CONGESTION 180-240 MG [id number] 1 tablet daily FEXOFENADINE-PSEUDOEPHEDRINE [id number] Jamil LEDEZMA lisdexamfetamine dimesylate 40 mg oral capsule (7 sources) Central Nervous System Stimulant Start: 12-17-2017 End: 02-02-2020 take 1 capsule by mouth once daily in the morning Lisdexamfetamine (Vyvanse) 40 mg capsule Discontinued 40 MG PO EVERY MORNING December 17, 2017 1:00am February 02, 2020 11:11am Start: 05-14-2017 VYVANSE 40 MG CAPS once daily LISDEXAMFETAMINE DIMESYLATE [id number] Jamil LEDEZMA MULTIPLE VITAMINS-MINERALS (1 source) Start: 05-14-2017 DAILY MULTIVITAMIN CAPS QD MULTIPLE VITAMINS-MINERALS [id number] Jamil LEDEZMA MULTIPLE VITAMINS-MINERALS (1 source) Start: 05-14-2017 DAILY MULTIVITAMIN CAPS QD MULTIPLE VITAMINS-MINERALS [id number] Jamil LEDEZMA propranolol hydrochloride 10 mg oral tablet (7 sources) beta-Adrenerg ic [place] Start: 12-17-2017 End: 07-23-2021 take 10 mg by mouth every six hours Propranolol Discontinued 10 MG PO EVERY 6 HOURS December 17, 2017 1:00am July 23, 2021 9:46am Start: 05-14-2017 PROPRANOLOL HC L 10 MG TABS BID PROPRANOLOL HCL [id number] Jamil LEDEZMA Problems Active Problems Problem Classification Problem Date Documented Da te Episodic/Chronic Essential hypertension (1 source) Essential (primary) hypertension; Translations: [Essential (primary) hypertension] Onset: 01-20-2025 Chronic Mood disorders (1 source) Bipolar disorder, unspecified; Translations: [Bipolar disorder, unspecified] Onset: 03-19-2025 Chronic Other female genital disorders (1 source) Tight hymenal ring; Translations: [Tight hymenal ring] Onset: 03-16-2025 Episodic Other screening for suspected conditions (not mental disorders or infectious disease) (4 sources) Encounter for screening mammogram for malignant neoplasm of breast; Translations: [Encounter for other screening for malignant neoplasm of breast] Onset: 03-16-2025 Episodic Past or Other Problems Problem Classification Problem Date Documented Da te Episodic/Chronic Chronic obstructive pulmonary disease and bronchiectasis (2 sources) Bronchitis; Translations: [Bronchitis, not specified as acute or chronic] Onset: 05-14-2017 05-14-2017 Episodic Diabetes mellitus without complication (1 source) Hyperglycemia, unspecified; Translations: [Hyperglycemia, unspecified] Onset: 09-22-2024 Episodic Other upper respiratory infections (2 sources) Upper respiratory infection; Translations: [Acute upper respiratory infection, unspecified] Onset: 05-14-2017 05-14-2017 Episodic Results Test Name Value Interpretation Reference Range Facility MR/BPon 04-27-2025 MR/BMS.BP [facility] [address], [address] [place] [address] OFFICE VISIT Date of Service: 04/27/25 MR#: [id number] Acct: [id number] Name: LATA RENTERIA Rep #: [id number] : 1980 Provider: ANN moraes Age/Sex: 44/F Location: [place] Status: Signed Intake Vital Signs 03/09/25 09:01 03/16/25 09:23 04/27/25 08:58 Height 5 ft 1 in 5 ft 1 in 5 ft 1 in Weight: 262 lb BMI 49.5 BP 118/77 Blood Pressure Location Lt brachial Position Sitting Respiration 16 Pulse 71 Pulse Source Monitor BP Intake Visit Reasons: 7-8wfu Accompanied by: Caregiver Allergies cefdinir Allergy (Intermediate, Verified 04/27/25 09:03) Hives rabeprazole (From Aciphex) Allergy (Mild, Verified 04/27/25 09:03) Other Medications ???Medication ???Instructions ???Recorded ???Confirmed ???Type clobetasol 0.05 % topical cream 1 applic topical ONCE 12/17/1704/16 History divalproex 500 mg tablet,delayed 500 mg PO BID 12/17/17 04/27/25 Hi story release (Depakote) lisinopril 10 1 tab PO BID 12/17/17 04/27/25 His tory mg-hydrochlorothiaz kevin 12.5 mg tablet multivitamin,tx-iro n-minerals 1 tab PO QDAY 12/17/17 04/27/25 Hi story (Complete Multivitamin tablet) lamotrigine 100 mg tablet 150 mg PO 02/02/20 04/27/25 Histor y (Lamictal) spironolactone 25 mg tablet 25 mg PO BID 02/02/20 04/27/25 His tory levothyroxine 25 mcg tablet 25 mcg PO QDAY 11/03/24 04/27/25 H istory tirzepatide 2.5 mg/0.5 mL 2.5 mg subcut QWEEK 11/03/2404/27 History subcutaneous pen injector propranolol 40 mg tablet 40 mg PO BID 03/16/25 04/27/25 His tory oxcarbazepine 150 mg tablet 150 mg PO QAM #30 tabs 03/28/25 Rx oxcarbazepine 300 mg tablet 300 mg PO HS #30 tabs 03/28/2504/16 Rx (Trileptal) bupropion HCl 150 mg 24 hr tablet, 150 mg PO QAM #30 tabs 04/11/25 04/27/25 Rx extended release PFSH Medical History Acid reflux Seasonal allergies ADHD Bipolar 1 disorder Hypertension Family History Father Diabetes Hypertension Social History Smoking Status: Never smoker alcohol intake: never substance use type: does not use caffeine: Yes what type of physical activity do you participate in: none seatbelt use: always do you feel safe at home: Yes additional social history: single - self relience HPI History of Present Illness History provided by: patient and other (Dinorah, care process manager) HPI: Lata Renteria is a 44 year old female patient presenting today for a follow up evaluation. Reports she has had a couple of incidents where she has been short tempered but has not been lashing out. Has been able to walk away and relax more. Reports they have been having more changes at her day-hab which has been anxiety inducing for her. Does still continue with hyperactive behaviors and increased talking but does feel this has reduced. Denies feelings of depression. Denies SI/HI. Denies panic attacks. Has been losing weight with tirzeptide. Has lost about 7 pounds since end of February. Has been exercising and trying to be more active. Has had a reduction in appetite and is much less food focused/obsessed. Sleep has been good for the most part. Previous similar episode: Yes Age of first onset of symptoms: 0-10 years Review of Systems Constitutional Reports: change in weight (loss) and fatigue; Denies: fever(s) or chills Eyes Denies: change in vision or blurry vision Ears, Nose, Mouth, Throat Denies: throat pain or neck pain Cardiovascular Denies: chest pain, palpitations or dyspnea Respiratory Denies: dyspnea or wheezing Gastrointestinal Denies: abdominal pain, nausea, vomiting, diarrhea or constipation Genitourinary Denies: dysuria, urinary frequency or urinary urgency Musculoskeletal Denies: back pain or neck pain Integumentary/Breas t Denies: rash, pruritus or erythema Neurological Denies: headache(s) Psychiatric Reports: anxiety, irritability, memory loss and difficulty concentrating (improved since last appointment); Denies: mood swings, panic attacks, change in sleep pattern, hopelessness, loss of interest, paranoia, visual hallucinations, auditory hallucinations, suicidal ideation or homicidal ideation Endocrine Reports: fatigue Hematologic/Lymphat ic Denies: easy bruising Allergic/Immunologi c Denies: wheezing Exam Mental Status Exam - Psych Appearance casually dressed, adequately groomed and no apparent distress Attitude cooperative Activity/Motor Behavior appropriate eye contact, fidgeting and restless Speech regular prosody, rapid and loud Mood euythmic Affect full range Thought Proces (more content not included)... Normal [facility] PAP IG HPV APTIMA 16/18,45on 03-20-2025 ADEQ Comment Normal . [facility] Comment on above: Order Comment: Speci men Comment: [id number] Comment: No. of containers..01 ThinPrep Vial Result Comment: Sati sfactory for evaluation. No endocervical component is identified. Performed By: #### L 7400.0280 ####[facility] [address] [place], [address] COMM . Normal . [facility] Comment on above: Order Comment: Speci men Comment: [id number] Comment: No. of containers..01 ThinPrep Vial Performed By: #### L 7400.0280 ####[facility] [address] [place], [place], [id number] COMMENT Comment Normal . [facility] Comment on above: Order Comment: Speci men Comment: [id number] Comment: No. of containers..01 ThinPrep Vial Result Comment: This liquid based ThinPrep(R) pap test was screened with the use of an image guided system. Performed By: #### L 7400.0280 ####[facility] [address] [place], [address] DIAG Comment Normal . [facility] Comment on above: Order Comment: Speci men Comment: [id number] Comment: No. of containers..01 ThinPrep Vial Result Comment: NEGA TIVE FOR INTRAEPITHELIAL LESION OR MALIGNANCY. Performed By: #### L 7400.0280 ####[facility] [address] [place], [address] HPV APTIMA, HR Negative Normal Negative [facility] Comment on above: Order Comment: Speci men Comment: [id number] Comment: No. of containers..01 ThinPrep Vial Result Comment: This nucleic acid amplification test detects fourteen high- risk HPV types (16,18,31,33,35,39,45,51,52,56,58,59,66,68) without differentiation. Performed By: #### L 7400.0280 ####[facility] [address] [place], [address] HPV Fouzia Rfx Comment Normal . [facility] Comment on above: Order Comment: Speci men Comment: [id number] Comment: No. of containers..01 ThinPrep Vial Result Comment: Crit erdebora not met, HPV Genotype not performed. Performed at: [address] [id number] Account Officer: Patricia Olivera MD, Phone: [phone] Performed at: =[address] [id number] Account Officer: Patricia Olivera MD, Phone: [phone] Performed By: #### L 7400.0280 ####[facility] [address] [place], [place], [id number] PAPSMR Comment Normal . [facility] Comment on above: Order Comment: Speci men Comment: [id number] Comment: No. of containers..01 ThinPrep Vial Result Comment: The Pap smear is a screening test designed to aid in the detection of premalignant and malignant conditions of the uterine cervix. It is not a diagnostic procedure and should not be used as the sole means of detecting cervical cancer. Both false-positive and false-negative reports do occur. Performed By: #### L 7400.0280 ####[facility] [address] [place], [place], [id number] PERFORM Comment Normal . [facility] Comment on above: Order Comment: Speci men Comment: [id number] Comment: No. of containers..01 ThinPrep Vial Result Comment: Alina Salvador Stair Builder (ASCP) Performed By: #### L 7400.0280 ####[facility] [address] [place], [place], [address] Lamotrigine (Lamictal) Level on 03-17-2025 LAMOTRIGINE 10.6 ug/mL Normal 2.0-20.0 [facility] Comment on above: Result Comment: Dete ction Limit = 1.0 Performed at: [address] [id number] Account Officer: Darrian Kohli MD, Phone: [phone] Performed By: #### L 501.8100, [id number] #### [facility] [address] [place], [place], [address] Apparel Designer Office Visit Reporton 03-16-2025 Apparel Designer Office Visit Report [facility] [address], [address] [place] [address] OFFICE VISIT Date of Service: 03/16/25 MR#: [id number] Acct: [id number] Name: MYRALATA ABRAHAM Rep #: [id number] : 1980 Provider: ANN monge Age/Sex: 44/F Location: [facility] Status: Signed Intake Vital Signs 01/27/25 08:53 03/09/25 09:01 03/16/25 09:09 03/16/25 09:23 Height 5 ft 1 in 5 ft 1 in 5 ft 1 in 5 ft 1 in Weight: 269 lb 8 oz BMI 50.9 BP 120/66 107/70 130/70 H Blood Pressure Location Lt brachial Lt radial Position Sitting Sitting Respiration 16 Pulse 80 73 Pulse Source Monitor Monitor Intake Visit Reasons: Annual (DENTAL SERVICE TECHNICIAN) Chief Complaint: Annual Combat Control Manager Required: No Is patient in pain?: No Allergies cefdinir Allergy (Intermediate, Verified 03/16/25 09:29) Hives rabeprazole (From Aciphex) Allergy (Mild, Verified 03/16/25 09:29) Other Medications ???Medication ???Instructions ???Recorded ???Confirmed ???Type clobetasol 0.05 % topical cream 1 applic topical ONCE 12/17/17 History divalproex 500 mg tablet,delayed 500 mg PO BID 12/17/17 03/16/25 Hi story release (Depakote) lisinopril 10 1 tab PO BID 12/17/17 03/16/25 His tory mg-hydrochlorothiaz kevin 12.5 mg tablet multivitamin,tx-iro n-minerals 1 tab PO QDAY 12/17/17 03/16/25 Hi story (Complete Multivitamin tablet) lamotrigine 100 mg tablet 150 mg PO 02/02/20 03/16/25 Histor y (Lamictal) spironolactone 25 mg tablet 25 mg PO BID 02/02/20 03/16/25 His tory oxcarbazepine 300 mg tablet 300 mg PO BID 07/23/21 03/16/25 Hi story (Trileptal) levothyroxine 25 mcg tablet 25 mcg PO QDAY 11/03/24 03/16/25 H istory tirzepatide 2.5 mg/0.5 mL 2.5 mg subcut QWEEK 11/03/2403/16 History subcutaneous pen injector bupropion HCl 150 mg 24 hr tablet, 150 mg PO QAM #30 tabs 03/09/25 03/16/25 Rx extended release propranolol 40 mg tablet 40 mg PO BID 03/16/25 03/16/25 His tory Is last menstrual period known: Yes Last Menstrual Period: 03/09/25 Post menopausal: No Patient : No : No PFSH Medical History Acid reflux Seasonal allergies ADHD Bipolar 1 disorder Hypertension Family History Father Diabetes Hypertension Social History Smoking Status: Never smoker alcohol intake: never substance use type: does not use caffeine: Yes what type of physical activity do you participate in: none seatbelt use: always do you feel safe at home: Yes additional social history: single - self relience History 0 Elective abortions Hx Para Spontaneous abortions Hx # Term Pregnancies Ectopic pregnancies Hx # Pregnancies Multiple births # of living children HPI Encounter for routine gynecological examination Details: LATA RENTERIA is a 44 year old who presents for annual exam. Denies concerns. Menses every 6 weeks. Never sexually activey. Mild DD patient: KATJA Copeland with her today Last PAP: 2019 History of abnormal PAP: no Last mammogram: 02/2024 History of abnormal mammogram: no Colon cancer screening: cologuard 2024 Other preventative health care screenings: Arturo Female Reproductive History Last Menstrual Period: 03/09/25 Questions: metorrhagia: No and sexually active: No ROS Const Constitutional: Denies fatigue, weight gain or weight loss Cardio Card: Denies chest pain Resp Resp: Denies cough or dyspnea on exertion GI GI: Denies abdominal pain, bloating, change in stool character, constipation or vomiting : Reports as per HPI; Denies difficulty voiding, pelvic pain, urinary frequency, urinary incontinence, urinary urgency, vaginal discharge or vaginal pruritus Exam Const General: cooperative, healthy appearing, no acute distress and well developed Nutritional Appearance: obese Orientation: alert, oriented to person and oriented to place [facility] Head: normal to inspection Neck Neck: normal visual inspection Thyroid: thyroid normal Lymphatic: no lymphadenopathy noted Chest Breast inspection: normal inspection of the breasts and normal inspection of the axillae Breast palpation: normal palpation of the breasts, normal palpation of the axillae and no axillary lymphadenopathy Resp Effort Inspection: normal respiratory effort GI Palpation: soft, no masses and nontender Rectal Exam: deferred External Female Exam: normal external appearance and normal appearance of the urethra Urethra: normal appearance of the urethra and normal palpation Speculum Exam - Vagina: normal appearance of the vagina (small introitus, intact posterior hymen) an (more content not included)... Normal [facility] Valproic Acid (Depakene) Lev wilder 03-15-2025 VALPROIC ACID 36 ug/mL Low 50-100 [facility] Comment on above: Result Comment: Valp roic Acid concentrations >100 ug/mL are potentially toxic. Performed By: #### L 501.8100, L3300.4400 #### [facility] [address] [place], [place], [address] MR/BMS.BPon 03-09-2025 MR/BMS.[place] [address], [address] [place], [place] [address] OFFICE VISIT Date of Service: 03/09/25 MR#: [id number] Acct: [id number] Name: LATA RENTERIA Rep #: [id number] : 1980 Provider: ANN moraes Age/Sex: 44/F Location: [facility] Status: Signed Intake Vital Signs 01/27/25 08:53 03/09/25 09:01 Height 5 ft 1 in 5 ft 1 in BP 120/66 107/70 Blood Pressure Location Lt brachial Lt radial Position Sitting Sitting Respiration 16 Pulse 80 73 Pulse Source Monitor Monitor BP Intake Visit Reasons: 6 wk FU Accompanied by: Caregiver Allergies cefdinir Allergy (Intermediate, Verified 03/09/25 09:07) Hives rabeprazole (From Aciphex) Allergy (Mild, Verified 03/09/25 09:07) Other Medications ???Medication ???Instructions ???Recorded ???Confirmed ???Type clobetasol 0.05 % topical cream 1 applic topical ONCE 12/17/17 History divalproex 500 mg tablet,delayed 500 mg PO BID 12/17/17 03/09/25 Hi story release (Depakote) lisinopril 10 1 tab PO BID 12/17/17 03/09/25 His tory mg-hydrochlorothiaz kevin 12.5 mg tablet multivitamin,tx-iro n-minerals 1 tab PO QDAY 12/17/17 03/09/25 Hi story (Complete Multivitamin tablet) lamotrigine 100 mg tablet 150 mg PO 02/02/20 03/09/25 Histor y (Lamictal) spironolactone 25 mg tablet 25 mg PO BID 02/02/20 03/09/25 His tory oxcarbazepine 300 mg tablet 300 mg PO BID 07/23/21 03/09/25 Hi story (Trileptal) levothyroxine 25 mcg tablet 25 mcg PO QDAY 11/03/24 03/09/25 H istory tirzepatide 2.5 mg/0.5 mL 2.5 mg subcut QWEEK 11/03/2403/09 History subcutaneous pen injector bupropion HCl 150 mg 24 hr tablet, 150 mg PO QAM #30 tabs 03/09/25 03/09/25 Rx extended release PFSH Medical History Acid reflux Seasonal allergies ADHD Bipolar 1 disorder Hypertension Family History Father Diabetes Hypertension Social History Smoking Status: Never smoker alcohol intake: never substance use type: does not use caffeine: Yes what type of physical activity do you participate in: none seatbelt use: always do you feel safe at home: Yes additional social history: single - self relience HPI History of Present Illness History provided by: patient and other (Dinorah, care process manager) HPI: Lata Renteria is a 44 year old female patient presenting today for a follow up evaluation. Does report she has been much more hyperactive over the last week or so and has been much louder and speaking in excess also. Does report she has been sleeping well and getting enough sleep. Does feel well rested in the morning. Does not feel she has seen a lot of improvement with attention and focus since increasing dose of bupropion. Does report she has been feeling more irritable. Admits to sometime mood swings. Admits to some feelings of anxiety with knowing she is going to spend time with her grandmother this weekend. Denies recent feelings of depression. Denies SI/HI. Denies making any recent risky or impulsive decisions. Previous similar episode: Yes Age of first onset of symptoms: 0-10 years Review of Systems Constitutional Reports: change in weight and fatigue; Denies: fever(s) or chills Eyes Denies: change in vision or blurry vision Ears, Nose, Mouth, Throat Denies: throat pain or neck pain Cardiovascular Denies: chest pain, palpitations or dyspnea Respiratory Denies: dyspnea or wheezing Gastrointestinal Denies: abdominal pain, nausea, vomiting, diarrhea or constipation Genitourinary Denies: dysuria, urinary frequency or urinary urgency Musculoskeletal Denies: back pain or neck pain Integumentary/Breas t Denies: rash, pruritus or erythema Neurological Denies: headache(s) Psychiatric Reports: anxiety, mood swings, irritability, memory loss and difficulty concentrating (improved since last appointment); Denies: panic attacks, change in sleep pattern, hopelessness, loss of interest, paranoia, visual hallucinations, auditory hallucinations, suicidal ideation or homicidal ideation Endocrine Reports: fatigue Hematologic/Lymphat ic Denies: easy bruising Allergic/Immunologi c Denies: wheezing Exam Mental Status Exam - Psych Appearance casually dressed, adequately groomed and no apparent distress Attitude cooperative Activity/Motor Behavior appropriate eye contact, fidgeting and restless Speech regular prosody, rapid and loud Mood euythmic Affect full range Thought Process logical, coherent and tangential Thought Content no delusions and no hallucinations Suicidal Ideation none Homicidal Ideation none Attention impaired Concentration impaired Sensorium/Or (more content not included)... Normal [facility] MR/BMS.BPon 01-27-2025 MR/BMS.BP [facility] [facility], [address] [place] [address] OFFICE VISIT Date of Service: 01/27/25 MR#: [id number] Acct: [id number] Name: LATA RENTERIA Rep #: [id number] : 1980 Provider: ANN moraes Age/Sex: 44/F Location: [facility] Status: Signed Intake Vital Signs 12/15/24 08:26 01/27/25 08:53 Height 5 ft 1 in 5 ft 1 in BP 142/78 H 120/66 Blood Pressure Location Lt brachial Lt brachial Position Sitting Sitting Respiration 16 Pulse 83 80 Pulse Source Monitor Monitor BP Intake Visit Reasons: 6 WK FU Combat Control Manager Required: No Accompanied by: disease case manager rn Is patient in pain?: Yes (4) Allergies cefdinir Allergy (Intermediate, Verified 01/27/25 08:55) Hives rabeprazole (From Aciphex) Allergy (Mild, Verified 01/27/25 08:55) Other Medications ???Medication ???Instructions ???Recorded ???Confirmed ???Type clobetasol 0.05 % topical cream 1 applic topical ONCE 12/17/1706/16 History divalproex 500 mg tablet,delayed 500 mg PO BID 12/17/17 01/27/25 Hi story release (Depakote) lisinopril 10 1 tab PO BID 12/17/17 01/27/25 His tory mg-hydrochlorothiaz kevin 12.5 mg tablet multivitamin,tx-iro n-minerals 1 tab PO QDAY 12/17/17 01/27/25 Hi story (Complete Multivitamin tablet) lamotrigine 100 mg tablet 150 mg PO 02/02/20 01/27/25 Histor y (Lamictal) spironolactone 25 mg tablet 25 mg PO BID 02/02/20 01/27/25 His tory oxcarbazepine 300 mg tablet 300 mg PO BID 07/23/21 01/27/25 Hi story (Trileptal) levothyroxine 25 mcg tablet 25 mcg PO QDAY 11/03/24 01/27/25 H istory tirzepatide 2.5 mg/0.5 mL 2.5 mg subcut QWEEK 11/03/2401/27 History subcutaneous pen injector bupropion HCl 300 mg 24 hr tablet, 300 mg PO QAM #30 tabs 01/27/25 01/27/25 Rx extended release PFSH Medical History Acid reflux Seasonal allergies ADHD Bipolar 1 disorder Hypertension Family History Father Diabetes Hypertension Social History Smoking Status: Never smoker alcohol intake: never substance use type: does not use caffeine: Yes what type of physical activity do you participate in: none seatbelt use: always do you feel safe at home: Yes additional social history: single - self relience HPI History of Present Illness History provided by: patient and other (Dinorah, care process manager) HPI: Lata Renteria is a 44 year old female patient presenting today for a follow up evaluation. Reports she has been doing well. Does feel she has been less anxious than she was before. Does feel she has been able to focus better. Does feel she has been less distracted. Admits to still having racing thoughts and rapid thinking but does present to be more calm. Caregiver does report she has been more calm and has seen some improvements in irritability. Does report some interpersonal relationship issues with housemate. Denies any panic attacks. Denies any changes in sleep. Does fee she has been coming home and is more tired. Does feel she has been feeling more depressed and having some lack of motivation but is unsure if it is due to situational circumstances or not. Admits to a decrease in appetite with injection as well as bupropion. Does report less of a fixation on food and has been feeling العلي faster. Denies SI/HI. Previous similar episode: Yes Age of first onset of symptoms: 0-10 years Review of Systems Constitutional Reports: change in weight and fatigue; Denies: fever(s) or chills Eyes Denies: change in vision or blurry vision Ears, Nose, Mouth, Throat Denies: throat pain or neck pain Cardiovascular Denies: chest pain, palpitations or dyspnea Respiratory Denies: dyspnea or wheezing Gastrointestinal Denies: abdominal pain, nausea, vomiting, diarrhea or constipation Genitourinary Denies: dysuria, urinary frequency or urinary urgency Musculoskeletal Denies: back pain or neck pain Integumentary/Breas t Denies: rash, pruritus or erythema Neurological Denies: headache(s) Psychiatric Reports: anxiety, mood swings, irritability, memory loss and difficulty concentrating (improved since last appointment); Denies: panic attacks, change in sleep pattern, hopelessness, loss of interest, paranoia, visual hallucinations, auditory hallucinations, suicidal ideation or homicidal ideation Endocrine Reports: fatigue Hematologic/Lymphat ic Denies: easy bruising Allergic/Immunologi c Denies: wheezing Exam Mental Status Exam - Psych Appearance casually dressed, adequately groomed and no apparent distress Attitude cooperative Activity/Motor Behavior appropriate eye contact, fidgeting and restless Speech regular prosody, rapid and (more content not included)... Normal [facility] CBC W/Diff, Automatedon 12-24 Absolute Lymph 1.97 X10 3/uL Normal 0.83-4.51 [facility] Comment on above: Performed By: #### L 100.0100, L500.4050, L506.1000, L500.4100, L501.9520 #### [facility] [address] [place], [address] Absolute Neut 3.9 X10 3/uL Normal 2.0-7.7 [facility] Comment on above: Performed By: #### L 100.0100, L500.4050, L506.1000, L500.4100, L501.9520 #### [facility] [address] [place], [address] Basophils/100 WBC (Bld) 0.5 % Normal 0-1 [facility] Comment on above: Performed By: #### L 100.0100, L500.4050, L506.1000, L500.4100, L501.9520 #### [facility] [address] [place], [address] Eosinophils/100 WBC (Bld) 2.8 % Normal 0-5 [facility] Comment on above: Performed By: #### L 100.0100, L500.4050, L506.1000, L500.4100, L501.9520 #### [facility] [address] [place], [address] Erythrocyte distribution width (RBC) [Ratio] 12.2 % Normal 11.6-14.6 [facility] Comment on above: Performed By: #### L 100.0100, L500.4050, L506.1000, L500.4100, L501.9520 #### [facility] [address] [place], [address] Hematocrit (Bld) [Volume fraction] 40.3 % Normal 37-47 [facility] Comment on above: Performed By: #### L 100.0100, L500.4050, L506.1000, L500.4100, L501.9520 #### [facility] [address] [place], [address] Hemoglobin (Bld) [Mass/Vol] 13.5 g/dL Normal 12.0-15.0 [facility] Comment on above: Performed By: #### L 100.0100, L500.4050, L506.1000, L500.4100, L501.9520 #### [facility] [address] [place], [address] IG% 0.600 Normal 0.0-0.9 [facility] Comment on above: Result Comment: IG% - Immature Granulocytes (promyelocytes, myelocytes and metamyelocytes) > 1% indicates that a LEFT SHIFT is Present. Performed By: #### L 100.0100, L500.4050, L506.1000, L500.4100, L501.9520 #### [facility] [address] [place], [address] Lymphocytes/100 WBC (Bld) 30.2 % Normal 19-41 [facility] Comment on above: Performed By: #### L 100.0100, L500.4050, L506.1000, L500.4100, L501.9520 #### [facility] [address] [place], [address] MCH (RBC) [Entitic mass] 29.6 pg Normal 27.0-32.0 [facility] Comment on above: Performed By: #### L 100.0100, L500.4050, L506.1000, L500.4100, L501.9520 #### [facility] [address] [place], [address] MCHC (RBC) [Mass/Vol] 33.5 g/dL Normal 32-36 [facility] Comment on above: Performed By: #### L 100.0100, L500.4050, L506.1000, L500.4100, L501.9520 #### [facility] [address] [place], [address] MCV (RBC) [Entitic vol] 88.4 fL Normal 81-99 [facility] Comment on above: Performed By: #### L 100.0100, L500.4050, L506.1000, L500.4100, L501.9520 #### [facility] [address] [place], [address] Monocytes/100 WBC (Bld) 6.3 % Normal 0-10 [facility] Comment on above: Performed By: #### L 100.0100, L500.4050, L506.1000, L500.4100, L501.9520 #### [facility] [address] [place], [address] Neutrophils/100 WBC (Bld) 59.6 % Normal 47-70 [facility] Comment on above: Performed By: #### L 100.0100, L500.4050, L506.1000, L500.4100, L501.9520 #### [facility] [address] [place], [address] Nucleated RBC (Bld) [#/Vol] 0 10*3/uL Normal 0-5 [facility] Comment on above: Performed By: #### L 100.0100, L500.4050, L506.1000, L500.4100, L501.9520 #### [facility] [address] [place], [address] Platelet mean volume (Bld) [Entitic vol] 9.0 fL Normal 6.2-12.0 [facility] Comment on above: Performed By: #### L 100.0100, L500.4050, L506.1000, L500.4100, L501.9520 #### [facility] [address] [place], [address] Platelets (Bld) [#/Vol] 371 10*3/uL Normal 150-450 [facility] Comment on above: Performed By: #### L 100.0100, L500.4050, L506.1000, L500.4100, L501.9520 #### [facility] [address] [place], [address] RBC (Bld) [#/Vol] 4.56 10*6/uL Normal 4.2-5.4 [facility] Comment on above: Performed By: #### L 100.0100, L500.4050, L506.1000, L500.4100, L501.9520 #### [facility] [address] [place], [address] RDW SD 39.9 fl Normal 35.1-43.9 [facility] Comment on above: Performed By: #### L 100.0100, L500.4050, L506.1000, L500.4100, L501.9520 #### [facility] [address] [place], [address] WBC (Bld) [#/Vol] 6.5 10*3/uL Normal 4.4-11.0 [facility] Comment on above: Performed By: #### L 100.0100, L500.4050, L506.1000, L500.4100, L501.9520 #### [facility] [address] [place], [address] Comprehensive Metabolic Prof rion 01-05-2025 Albumin [Mass/Vol] 3.6 g/dL Normal 3.2-5.0 [facility] Comment on above: Order Comment: VITD Performed By: #### L 100.0100, L500.4050, L506.1000, L500.4100, L501.9520 #### [facility] [address] [place], [address] Albumin/Globulin [Mass ratio] 1.0 {ratio} Normal 0.9-2.4 [facility] Comment on above: Order Comment: VITD Performed By: #### L 100.0100, L500.4050, L506.1000, L500.4100, L501.9520 #### [facility] [address] [place], [address] ALK P 68 U/L Normal 45-117 [facility] Comment on above: Order Comment: VITD Performed By: #### L 100.0100, L500.4050, L506.1000, L500.4100, L501.9520 #### [facility] [address] [place], [address] ALT [Catalytic activity/Vol] 23 U/L Normal 13-56 [facility] Comment on above: Order Comment: VITD Performed By: #### L 100.0100, L500.4050, L506.1000, L500.4100, L501.9520 #### [facility] [address] [place], [address] AST [Catalytic activity/Vol] 16 U/L Normal 15-37 [facility] Comment on above: Order Comment: VITD Performed By: #### L 100.0100, L500.4050, L506.1000, L500.4100, L501.9520 #### [facility] [address] [place], [address] Bilirubin [Mass/Vol] 0.20 mg/dL Normal 0.20-1.00 [facility] Comment on above: Order Comment: VITD Result Comment: For patients on eltrombopag therapy, use of Dimension [place] TBIL is not recommended. Performed By: #### L 100.0100, L500.4050, L506.1000, L500.4100, L501.9520 #### [facility] [address] [place], [address] BUN/CRE 14.2 RATIO Normal 10-20 [facility] Comment on above: Order Comment: VITD Performed By: #### L 100.0100, L500.4050, L506.1000, L500.4100, L501.9520 #### [facility] [address] [place], [address] CA,Total 9.7 mg/dL Normal 8.5-10.1 [facility] Comment on above: Order Comment: VITD Performed By: #### L 100.0100, L500.4050, L506.1000, L500.4100, L501.9520 #### [facility] [address] [place], [address] Chloride [Moles/Vol] 96 mmol/L Low 98-107 [facility] Comment on above: Order Comment: VITD Performed By: #### L 100.0100, L500.4050, L506.1000, L500.4100, L501.9520 #### [facility] [address] [place], [address] CO2 [Moles/Vol] 33.0 mmol/L High 21.0-32.0 [facility] Comment on above: Order Comment: VITD Performed By: #### L 100.0100, L500.4050, L506.1000, L500.4100, L501.9520 #### [facility] [address] [place], [address] Creatinine [Mass/Vol] 0.63 mg/dL Normal 0.55-1.02 [facility] Comment on above: Order Comment: VITD Result Comment: The validity of the calculated GFR GFRAA in patients over 70 years has not been determined. Clinical correlation is essential. Performed By: #### L 100.0100, L500.4050, L506.1000, L500.4100, L501.9520 #### [facility] [address] [place], [address] EST GFR - AA 131 mL/min Normal >60 [facility] Comment on above: Order Comment: VITD Result Comment: Afri can Singaporean GFR Calc Performed By: #### L 100.0100, L500.4050, L506.1000, L500.4100, L501.9520 #### [facility] [address] [place], [address] GAP 7 Normal 5-15 [facility] Comment on above: Order Comment: VITD Performed By: #### L 100.0100, L500.4050, L506.1000, L500.4100, L501.9520 #### [facility] [address] [place], [address] GFR/1.73 sq M.predicted among non-blacks MDRD (S/P/Bld) [Vol rate/Area] 108 mL/min/{1.73_m2} Normal >60 [facility] Comment on above: Order Comment: VITD Result Comment: Non- GFR Calc Performed By: #### L 100.0100, L500.4050, L506.1000, L500.4100, L501.9520 #### [facility] [address] [place], [address] Globulin (S) [Mass/Vol] 3.5 g/dL Normal 2.2-4.2 [facility] Comment on above: Order Comment: VITD Performed By: #### L 100.0100, L500.4050, L506.1000, L500.4100, L501.9520 #### [facility] [address] [place], [address] Glucose [Mass/Vol] 83 mg/dL Normal 74-106 [facility] Comment on above: Order Comment: VITD Performed By: #### L 100.0100, L500.4050, L506.1000, L500.4100, L501.9520 #### [facility] [address] [place], [address] Potassium [Moles/Vol] 4.0 mmol/L Normal 3.5-5.1 [facility] Comment on above: Order Comment: VITD Performed By: #### L 100.0100, L500.4050, L506.1000, L500.4100, L501.9520 #### [facility] [address] [place], [address] Sodium [Moles/Vol] 136 mmol/L Normal 136-145 [facility] Comment on above: Order Comment: VITD Performed By: #### L 100.0100, L500.4050, L506.1000, L500.4100, L501.9520 #### [facility] [address] [place], [address] T PROT 7.1 g/dL Normal 6.4-8.2 [facility] Comment on above: Order Comment: VITD Performed By: #### L 100.0100, L500.4050, L506.1000, L500.4100, L501.9520 #### [facility] [address] [place], [address] Urea nitrogen [Mass/Vol] 9 mg/dL Normal 7-18 [facility] Comment on above: Order Comment: VITD Performed By: #### L 100.0100, L500.4050, L506.1000, L500.4100, L501.9520 #### [facility] [address] [place], [address] Lipid Profileon 01-05-2025 Cholesterol [Mass/Vol] 224 mg/dL High 200 [place] Comment on above: Result Comment: <200 mg/dL Desirable 200-240 mg/dL Borderline >240 mg/dL High Risk Performed By: #### L 100.0100, L500.4050, L506.1000, L500.4100, L501.9520 #### [facility] [address] [place], [address] Cholesterol in HDL [Mass/Vol] 42 mg/dL Normal [facility] Comment on above: Result Comment: The drugs N-Acetylcysteine and Metamizole may falsely depress this assay. Reference Range HDL <40 mg/dL Low HDL Cholesterol HDL >or= 60 mg/dL High HDL Cholesterol Performed By: #### L 100.0100, L500.4050, L506.1000, L500.4100, L501.9520 #### [facility] [address] [place], [address] Cholesterol in LDL [Mass/Vol] 146 mg/dL High 0-130 [facility] Comment on above: Performed By: #### L 100.0100, L500.4050, L506.1000, L500.4100, L501.9520 #### [facility] [address] [place], [address] Cholesterol in VLDL [Mass/Vol] 36 mg/dL Normal 5-40 [facility] Comment on above: Performed By: #### L 100.0100, L500.4050, L506.1000, L500.4100, L501.9520 #### [facility] [address] [place], [address] Triglyceride [Mass/Vol] 181 mg/dL Normal [facility] Comment on above: Result Comment: The drugs N-Acetylcysteine and Metamizole may falsely depress this assay. Serum Triglycerides Reference Interval Normal <150 mg/dL Borderline high 150 - 199 mg/dL High 200 - 499 mg/dL Very High > or = 500 mg/dL Performed By: #### L 100.0100, L500.4050, L506.1000, L500.4100, L501.9520 #### [facility] [address] [place], [address] Thyroid Stim Hormone (TSH)on 01-05-2025 TSH 2.880 uIU/mL Normal 0.358-3.740 [facility] Comment on above: Performed By: #### L 100.0100, L500.4050, L506.1000, L500.4100, L501.9520 #### [facility] [address] [place], [address] Vitamin D,25 Hydroxyon 01-05 Vitamin D 25-OH 26.1 ng/mL Normal [facility] Comment on above: Result Comment: Danya min D 25(OH) Status Range Deficiency <20 ng/mL (50nmol/L) Insufficiency 20 - 30 ng/mL (50 - 75 nmol/L) Sufficiency 30 - 100 ng/mL (75 - 250 nmol/L) Toxicity >100 ng/mL (>250 nmol/L) Performed By: #### L 100.0100, L500.4050, L506.1000, L500.4100, L501.9520 #### [facility] [address] [place], [address] MR/BMS.BPon 12-15-2024 MR/BMS.BP [address], [address] [place] [address] OFFICE VISIT Date of Service: 12/15/24 MR#: [id number] Acct: [id number] Name: REGINA RENTERIABhargavi Silva Rep #: [id number] : 1980 Provider: ANN moraes Age/Sex: 44/F Location: [facility] Status: Signed Intake Vital Signs 11/03/24 09:05 12/15/24 08:26 Height 5 ft 1 in 5 ft 1 in Weight: 296 lb BMI 55.9 BP 133/84 H 142/78 H Blood Pressure Location Rt brachial Lt brachial Position Sitting Sitting Respiration 18 16 Pulse 81 83 Pulse Source Monitor Monitor BP Intake Visit Reasons: 6 wk FU Accompanied by: Caregiver Allergies cefdinir Allergy (Intermediate, Verified 12/15/24 08:30) Hives rabeprazole (From Aciphex) Allergy (Mild, Verified 12/15/24 08:30) Other Medications ???Medication ???Instructions ???Recorded ???Confirmed ???Type clobetasol 0.05 % topical cream 1 applic topical ONCE 12/17/17 12/15/24 History divalproex 500 mg tablet,delayed 500 mg PO BID 12/17/17 12/15/24 History release (Depakote) lisinopril 10 1 tab PO BID 12/17/17 12/15/24 History mg-hydrochlorothiaz kevin 12.5 mg tablet multivitamin,tx-iro n-minerals 1 tab PO QDAY 12/17/17 12/15/24 History (Complete Multivitamin tablet) lamotrigine 100 mg tablet 150 mg PO 02/02/20 12/15/24 History (Lamictal) spironolactone 25 mg tablet 25 mg PO BID 02/02/20 12/15/24 History oxcarbazepine 300 mg tablet 300 mg PO BID 07/23/21 12/15/24 History (Trileptal) levothyroxine 25 mcg tablet 25 mcg PO QDAY 11/03/24 12/15/24 History tirzepatide 2.5 mg/0.5 mL 2.5 mg subcut QWEEK 11/03/24 12/15/24 History subcutaneous pen injector bupropion HCl 150 mg 24 hr tablet, 150 mg PO QAM #30 tabs 12/15/24 12/15/24 Rx extended release PFSH Medical History (Updated 12/15/24 @ 12:01 by ANN Tovar) Acid reflux Seasonal allergies ADHD Bipolar 1 disorder Hypertension Family History Father Diabetes Hypertension Social History Smoking Status: Never smoker alcohol intake: never substance use type: does not use caffeine: Yes what type of physical activity do you participate in: none seatbelt use: always do you feel safe at home: Yes additional social history: single - self relience HPI History of Present Illness History provided by: patient and other (Dinorah, care process manager) HPI: Lata Renteria is a 44 year old female patient presenting today for a follow up evaluation. Denies any feelings of depression. Denies SI/HI. Admits to feeling more anxious. Does feel she has been more hyperactive and struggling with over talking and excessive speech. Admits to still having difficulty with focus, concentration, and inattention. Admits to sleep being good. Has been getting about 8 hours of sleep per night. Does feel well rested. Does take daytime naps on occasion. Appetite has been good. Has lost 3 more pounds since last appointment. Previous similar episode: Yes Age of first onset of symptoms: 0-10 years Review of Systems Constitutional Reports: change in weight; Denies: fever(s), chills or fatigue Eyes Denies: change in vision or blurry vision Ears, Nose, Mouth, Throat Denies: throat pain or neck pain Cardiovascular Denies: chest pain, palpitations or dyspnea Respiratory Denies: dyspnea or wheezing Gastrointestinal Denies: abdominal pain, nausea, vomiting, diarrhea or constipation Genitourinary Denies: dysuria, urinary frequency or urinary urgency Musculoskeletal Denies: back pain or neck pain Integumentary/Breas t Denies: rash, pruritus or erythema Neurological Denies: headache(s) Psychiatric Reports: anxiety, mood swings, panic attacks, irritability, memory loss and difficulty concentrating; Denies: change in sleep pattern, hopelessness, loss of interest, paranoia, visual hallucinations, auditory hallucinations, suicidal ideation or homicidal ideation Endocrine Denies: fatigue Hematologic/Lymphat ic Denies: easy bruising Allergic/Immunologi c Denies: wheezing Exam Mental Status Exam - Psych Appearance casually dressed, adequately groomed and no apparent distress Attitude cooperative Activity/Motor Behavior appropriate eye contact, fidgeting and restless Speech regular prosody, rapid and loud Mood euythmic Affect full range Thought Process logical, coherent and tangential Thought Content no delusions and no hallucinations Suicidal Ideation none Homicidal Ideation none Attention impaired Concentration impaired Sensorium/Orientati on awake, alert and oriented x3 Memory/Cognition intact Insight fair Judgement fair Exam Constitutional Common normals: no acute distress, average body habitus and patient (more content not included)... Normal [facility] Lamotrigine (Lamictal) Level on 11-18-2024 LAMOTRIGINE 10.4 ug/mL Normal 2.0-20.0 [facility] Comment on above: Result Comment: Wandy ction Limit = 1.0 Performed at: [facility] ([facility]) [address] [id number] Account Officer: Darrian Kohli MD, Phone: [phone] Performed By: #### L 501.8100, L3300.4400 ####[facility] [address] [place], [place], [id number] Valproic Acid (Depakene) Lev wilder 11-14-2024 VALPROIC ACID 45 ug/mL Low 50-100 [facility] Comment on above: Performed By: #### L 501.8100, L3300.4400 ####[facility] [address] [place], [place], [id number] MR/BMS.BPon 11-03-2024 MR/BMS.BP [facility] [address] [place] [address], [address] [place], [place] [address] OFFICE VISIT Date of Service: 11/03/24 MR#: [id number] Acct: [id number] Name: LATA RENTERIA Rep #: [id number] : 1980 Provider: ANN moraes Age/Sex: 44/F Location: [place].[facility] Status: Signed Intake Vital Signs 03/03/24 11:11 11/03/24 09:05 Height 5 ft 1 in 5 ft 1 in Weight: 296 lb BMI 55.9 BP 133/84 H Blood Pressure Location Rt brachial Position Sitting Respiration 18 Pulse 81 Pulse Source Monitor BP Intake Visit Reasons: anxiety/depression/ Eval for ADHD Accompanied by: Caregiver Allergies cefdinir Allergy (Intermediate, Verified 11/03/24 09:12) Hives rabeprazole (From Aciphex) Allergy (Mild, Verified 11/03/24 09:12) Other Medications ???Medication ???Instructions ???Recorded ???Confirmed ???Type clobetasol 0.05 % topical cream 1 applic topical ONCE 12/17/17 11/03/24 History divalproex 500 mg tablet,delayed 500 mg PO BID 12/17/17 11/03/24 History release (Depakote) lisinopril 10 1 tab PO BID 12/17/17 11/03/24 History mg-hydrochlorothiaz kevin 12.5 mg tablet multivitamin,tx-iro n-minerals 1 tab PO QDAY 12/17/17 11/03/24 History (Complete Multivitamin tablet) lamotrigine 100 mg tablet 150 mg PO 02/02/20 11/03/24 History (Lamictal) spironolactone 25 mg tablet 25 mg PO BID 02/02/20 11/03/24 History oxcarbazepine 300 mg tablet 300 mg PO BID 07/23/21 11/03/24 History (Trileptal) levothyroxine 25 mcg tablet 25 mcg PO QDAY 11/03/24 11/03/24 History tirzepatide 2.5 mg/0.5 mL 2.5 mg subcut QWEEK 11/03/24 11/03/24 History subcutaneous pen injector [facility] Medical History (Updated 11/03/24 @ 09:57 by ANN Tovar) Acid reflux Seasonal allergies ADHD Bipolar 1 disorder Hypertension Family History Father Diabetes Hypertension Social History Smoking Status: Never smoker alcohol intake: never substance use type: does not use caffeine: Yes what type of physical activity do you participate in: none seatbelt use: always do you feel safe at home: Yes additional social history: single - self relience HPI History of Present Illness History provided by: patient and other (Dinorah, care process manager) Chief complaint: Hyperactivity/Inatt ention HPI: Lata Renteria is a 44 year old female patient presenting today for an intake evaluation. Admits to wanting to be seen for ADHD management. States her boyfriend unexpectedly last year and a staff member left and another staff member . Reports she has gained some weight recently during these transitions. Sleep: Has been sleeping well and getting about 9 hours of sleep. Denies any issues falling asleep or staying asleep. Admits to napping infrequently. Interest: Admits to finding joe in crafts and making cards for people. Does feel when she is getting overstimulated she will crash. Admits to sometimes feelings of depression. Energy: Admits to feeling well rested during the day but can be easily fatigued. Admits to a sometimes lack of energy. Admits to a large lack of motivation. Guilt: In the past she has felt like people have been out to get her but does not feel this way now. Does feel like she is disappointing others and will feel worthlessness. Denies guilt or hopelessness. Concentration: Admits to difficulties with focus, concentration, and inattention. Admits to feeling easily distracted all the time. Does not pay attention to detail. Admits to feeling like if she did not have assistance through outreach would be very disorganized. Admits to interrupting other when they are speaking. Admits to procrastinating all tasks. Admits to being restless and unable to sit still. Admits to having difficulties with her paying attention when being spoken to. Admits to some difficulties with following instructions. Does speak excessively. Admits to being impatient. Has difficulties with waiting her turn. Appetite: Has recently started Wegovy injection for weight loss. Has gained 40 pounds over the last 9-12 months. Has been trying to be more physically active for at least 30-60 minutes daily. Psychomotor: WNL Suicide: Denies SI/HI. 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 Denies feeling forgetful unless it is something she does not want to do. Admits to frequently losing things. Anxiety: Admits to feelings of anxiety all the time. Admits to changes in schedule, being around new people, and being around young people worsening anxiety. Admits to using distraction as a way to manage anxiety. Denies having panic attacks. Obsessions: Is having obsessive thinking throughout the day if she has something coming up to look forward to. Compulsions: Admits to (more content not included)... Normal [facility] Basic Metabolic Profile (BMP )on 09-01-2024 BUN/CRE 15.2 RATIO Normal - [facility] Comment on above: Performed By: #### L 501.3526, L500.2500, L100.0100 ####[facility] [address] [place], [address] CA,Total 9.1 mg/dL Normal 8.5-10.1 [facility] Comment on above: Performed By: #### L 501.9985, L500.2500, L100.0100 ####[facility] [address] [place], [address] Chloride [Moles/Vol] 99 mmol/L Normal 98-107 [facility] Comment on above: Performed By: #### L 501.9985, L500.2500, L100.0100 ####[facility] [address] [place], [address] CO2 [Moles/Vol] 31.0 mmol/L Normal 21.0-32.0 [facility] Comment on above: Performed By: #### L 501.9985, L500.2500, L100.0100 ####[facility] [address] [place], [address] Creatinine [Mass/Vol] 0.59 mg/dL Normal 0.55-1.02 [facility] Comment on above: Result Comment: The validity of the calculated GFR GFRAA in patients over 70 years has not been determined. Clinical correlation is essential. Performed By: #### L 501.9985, L500.2500, L100.0100 ####[facility] [address] [place], [address] EST GFR - AA 141 mL/min Normal >60 [facility] Comment on above: Result Comment: Afri can Singaporean GFR Calc Performed By: #### L 501.9985, L500.2500, L100.0100 ####[facility] [address] [place], [address] GAP 5 Normal 5-15 [facility] Comment on above: Performed By: #### L 501.9985, L500.2500, L100.0100 ####[facility] [address] [place], [address] GFR/1.73 sq M.predicted among non-blacks MDRD (S/P/Bld) [Vol rate/Area] 116 mL/min/{1.73_m2} Normal >60 [facility] Comment on above: Result Comment: Non- GFR Calc Performed By: #### L 501.9985, L500.2500, L100.0100 ####[facility] [address] [place], [address] Glucose [Mass/Vol] 136 mg/dL High 74-106 [facility] Comment on above: Result Comment: Fast ing Glucose result greater than or equal to 126 mg/dL suggests DIABETES MELLITUS per A.D.A. criteria. Performed By: #### L 501.9985, L500.2500, L100.0100 ####[facility] [address] [place], [address] Potassium [Moles/Vol] 4.0 mmol/L Normal 3.5-5.1 [facility] Comment on above: Performed By: #### L 501.9985, L500.2500, L100.0100 ####[facility] [address] [place], [address] Sodium [Moles/Vol] 135 mmol/L Low 136-145 [facility] Comment on above: Performed By: #### L 501.9985, L500.2500, L100.0100 ####[facility] [address] [place], [address] Urea nitrogen [Mass/Vol] 9 mg/dL Normal 7-18 [facility] Comment on above: Performed By: #### L 501.9985, L500.2500, L100.0100 ####[facility] [address] [place], [address] CBC W/Diff, Automatedon 10-1 0-2024 Absolute Lymph 1.68 X10 3/uL Normal 0.83-4.51 [facility] Comment on above: Performed By: #### L 501.9985, L500.2500, L100.0100 ####[facility] [address] [place], [address] Absolute Neut 3.9 X10 3/uL Normal 2.0-7.7 [facility] Comment on above: Performed By: #### L 501.9985, L500.2500, L100.0100 ####[facility] [address] [place], [address] Basophils/100 WBC (Bld) 0.6 % Normal 0-1 [facility] Comment on above: Performed By: #### L 501.9985, L500.2500, L100.0100 ####[facility] [address] [place], [address] Eosinophils/100 WBC (Bld) 3.2 % Normal 0-5 [facility] Comment on above: Performed By: #### L 501.9985, L500.2500, L100.0100 ####[facility] [address] [place], [address] Erythrocyte distribution width (RBC) [Ratio] 12.0 % Normal 11.6-14.6 [facility] Comment on above: Performed By: #### L 501.9985, L500.2500, L100.0100 ####[facility] [address] [place], [address] Hematocrit (Bld) [Volume fraction] 39.3 % Normal 37-47 [facility] Comment on above: Performed By: #### L 501.9985, L500.2500, L100.0100 ####[facility] [address] [place], [address] Hemoglobin (Bld) [Mass/Vol] 12.9 g/dL Normal 12.0-15.0 [facility] Comment on above: Performed By: #### L 501.9985, L500.2500, L100.0100 ####[facility] [address] [place], [address] IG% 1.100 High 0.0-0.9 [facility] Comment on above: Result Comment: IG% - Immature Granulocytes (promyelocytes, myelocytes and metamyelocytes) > 1% indicates that a LEFT SHIFT is Present. Performed By: #### L 501.9985, L500.2500, L100.0100 ####[facility] [address] [place], [address] Lymphocytes/100 WBC (Bld) 27.1 % Normal 19-41 [facility] Comment on above: Performed By: #### L 501.9985, L500.2500, L100.0100 ####[facility] [address] [place], [address] MCH (RBC) [Entitic mass] 29.6 pg Normal 27.0-32.0 [facility] Comment on above: Performed By: #### L 501.9985, L500.2500, L100.0100 ####[facility] [address] [place], [address] MCHC (RBC) [Mass/Vol] 32.8 g/dL Normal 32-36 [facility] Comment on above: Performed By: #### L 501.9985, L500.2500, L100.0100 ####[facility] [address] [place], [address] MCV (RBC) [Entitic vol] 90.1 fL Normal 81-99 [facility] Comment on above: Performed By: #### L 501.9985, L500.2500, L100.0100 ####[facility] [address] [place], [address] Monocytes/100 WBC (Bld) 5.2 % Normal 0-10 [facility] Comment on above: Performed By: #### L 501.9985, L500.2500, L100.0100 ####[facility] [address] [place], [address] Neutrophils/100 WBC (Bld) 62.8 % Normal 47-70 [facility] Comment on above: Performed By: #### L 501.9985, L500.2500, L100.0100 ####[facility] [address] [place], [address] Nucleated RBC (Bld) [#/Vol] 0 10*3/uL Normal 0-5 [facility] Comment on above: Performed By: #### L 501.9985, L500.2500, L100.0100 ####[facility] [address] [place], [address] Platelet mean volume (Bld) [Entitic vol] 8.9 fL Normal 6.2-12.0 [facility] Comment on above: Performed By: #### L 501.9985, L500.2500, L100.0100 ####[facility] [address] [place], [address] Platelets (Bld) [#/Vol] 345 10*3/uL Normal 150-450 [facility] Comment on above: Performed By: #### L 501.9985, L500.2500, L100.0100 ####[facility] [address] [place], [address] RBC (Bld) [#/Vol] 4.36 10*6/uL Normal 4.2-5.4 [facility] Comment on above: Performed By: #### L 501.9985, L500.2500, L100.0100 ####[facility] [address] [place], [address] RDW SD 39.4 fl Normal 35.1-43.9 [facility] Comment on above: Performed By: #### L 501.9985, L500.2500, L100.0100 ####[facility] [address] [place], [address] WBC (Bld) [#/Vol] 6.2 10*3/uL Normal 4.4-11.0 [facility] Comment on above: Performed By: #### L 501.9985, L500.2500, L100.0100 ####[facility] [address] [place], [address] Hemoglobin A1con 09-01-2024 HbA1c (Bld) [Mass fraction] 5.5 % Normal 3.8-5.6 [facility] Comment on above: Result Comment: Norm al < 5.7 % Prediabetic 5.7 - 6.4 % Diabetic >or= 6.5 % Please note range changes. Performed By: #### L 501.9985, L500.2500, L100.0100 ####[facility] [address] [place], [address] Absolute lymphocyte countOrd ered By: Anthony Morris on 12-08-2023 Lymphocytes Auto (Unsp spec) [#/Vol] 1.81 10*3/uL 0.83-4.51 [facility] Automated lymphocyte count a s percentage of total leukocytesOrdered By: Anthony Morris on 12-08-2023 Lymphocytes/100 WBC Auto (Unsp spec) 24.4 % 19-41 [facility] Basophil percentageOrdered B y: Anthony Morris on 12-08-2023 Basophils/100 WBC (Bld) 0.5 % 0-1 [facility] Bilirubin [Mass/Vol] 0.30 mg/dL 0.20-1.00 [facility] Comment on above: For patients on eltr ombopag therapy, use of Dimension [place] TBIL is not recommended. Chloride [Moles/Vol] 98 mmol/L 98-107 [facility] Cholesterol [Mass/Vol] 234 mg/dL <200 [place] Comment on above: <200 mg/dL Desirable 200-240 mg/dL Borderline >240 mg/dL High Risk Eosinophils/100 WBC (Bld) 2.3 % 0-5 [facility] Glucose [Mass/Vol] 79 mg/dL 74-106 [facility] Hemoglobin (Bld) [Mass/Vol] 14.0 g/dL 12.0-15.0 [facility] Monocytes/100 WBC (Bld) 5.9 % 0-10 [facility] Neutrophils (Bld) [#/Vol] 4.9 10*3/uL 2.0-7.7 [facility] Neutrophils/100 WBC (Bld) 66.5 % 47-70 [facility] Potassium [Moles/Vol] 3.9 mmol/L 3.5-5.1 [facility] Protein [Mass/Vol] 7.0 g/dL 6.4-8.2 [facility] Sodium [Moles/Vol] 134 mmol/L 136-145 [facility] Triglyceride [Mass/Vol] 175 mg/dL <199 [facility] Comment on above: The drugs N-Acetylcy steine and Metamizole may falsely depress this assay.Serum Triglycerides Reference Interval Normal <150 mg/dL Borderline high 150 - 199 mg/dL High 200 - 499 mg/dL Very High > or = 500 mg/dL WBC (Bld) [#/Vol] 7.4 10*3/uL 4.4-11.0 [facility] Determination of erythrocyte mean corpuscular volume (MCV)Ordered By: Anthony Morris 12-08-2023 MCV (RBC) [Entitic vol] 88.3 fL 81-99 [facility] Erythrocyte distribution wid th ratioOrdered By: Anthony Morris 12-08-2023 Erythrocyte distribution width (RBC) [Ratio] 12.2 % 11.6-14.6 [facility] Erythrocyte distribution wid th standard deviationOrdered By: Anthony Morris 12-08-2023 Erythrocyte distribution width (RBC) [Entitic vol] 39.5 fL 35.1-43.9 [facility] Hematocrit Auto (Bld) [Volum e fraction]Ordered By: Anthony Morris 12-08-2023 Hematocrit (Bld) [Volume fraction] 40.9 % 37-47 [facility] High density lipoprotein (HD L) measurementOrdered By: Anthony Morris on 12-08-2023 Cholesterol in HDL (Body fld) [Mass/Vol] 41 mg/dL >40 [facility] Comment on above: The drugs N-Acetylcy steine and Metamizole may falsely depress this assay. Reference Range HDL <40 mg/dL Low HDL Cholesterol HDL >or= 60 mg/dL High HDL Cholesterol Immature granulocytes/100 WB C Auto (Bld)Ordered By: Anthony Morris on 12-08-2023 Immature granulocytes/100 WBC (Bld) 0.400 % 0.0-0.9 [facility] Comment on above: IG% - Immature Granu locytes (promyelocytes, myelocytes and metamyelocytes) > 1% indicates that a LEFT SHIFT is Present. Laboratory - Chemistry and C hemistry - challengeOrdered By: Anthony Morris on 12-08-2023 Albumin/Globulin [Mass ratio] 1.1 {ratio} 0.9-2.4 [facility] ALP [Catalytic activity/Vol] 71 U/L 45-117 [facility] ALT [Catalytic activity/Vol] 19 U/L 13-56 [facility] CO2 [Moles/Vol] 28.0 mmol/L 21.0-32.0 [facility] Globulin (S) [Mass/Vol] 3.4 g/dL 2.2-4.2 [facility] Sodium (U) [Moles/Vol] 100 mmol/L Not Establ. [facility] Urea nitrogen/Creatinine [Mass ratio] 16.8 mg/mg 10-20 [facility] Laboratory - Hematology and Cell countsOrdered By: Anthony Morris on 12-08-2023 MCH (RBC) [Entitic mass] 30.2 pg 27.0-32.0 [facility] MCHC (RBC) [Mass/Vol] 34.2 g/dL 32-36 [facility] Nucleated RBC/100 WBC (Bld) [Ratio] 0 % 0-5 [facility] Platelets (Bld) [#/Vol] 357 10*3/uL 150-450 [facility] Low density lipoprotein (LDL ) cholesterol measurementOrdered By: Anthony Morris 12-08-2023 Cholesterol in LDL (Body fld) [Moles/Vol] 158 mg/dL 0-130 [facility] No Panel InformationOrdered By: Anthony Morris on 12-08-2023 Estimated GFR (MDRD) Amer 140 mL/min >60 [facility] Comment on above: GFR Calc Estimated GFR (MDRD) Non-Af Amer 116 mL/min >60 [facility] Comment on above: Non- GFR Calc Platelet mean volume Garland-Ec ker (Bld) [Entitic vol]Ordered By: Anthony Morris on 12-08-2023 Platelet mean volume (Bld) [Entitic vol] 9.4 fL 6.2-12.0 [facility] RBC Auto (Bld) [#/Vol]Ordere d By: Anthony Morris on 12-08-2023 RBC (Bld) [#/Vol] 4.63 10*6/uL 4.2-5.4 [facility] Serum or plasma calcium renetta urement (mass/volume)Ordered By: Anthony Morris on 12-08-2023 Calcium [Mass/Vol] 9.1 mg/dL 8.5-10.1 [facility] Serum or plasma creatinine m easurement (mass/volume)Ordered By: Anthony Mroris on 12-08-2023 Creatinine [Mass/Vol] 0.60 mg/dL 0.55-1.02 [facility] Comment on above: The validity of the calculated GFR & GFRAA in patients over 70 years has not been determined. Clinical correlation is essential. Serum or plasma thyroid stim ulating hormone (TSH) measurement (units/volume)Ordered By: Anthony Morris on 12-08-2023 TSH Qn 3.10 uIU/mL 0.358-3.74 [facility] Serum or plasma urea nitroge n measurement (mass/volume)Ordered By: Anthony Morris on 12-08-2023 Urea nitrogen [Mass/Vol] 10 mg/dL 7-18 [facility] Thin prep Papanicolaou smear with manual screeningOrdered By: Anthony Morris 12-08-2023 Thin prep Papanicolaou smear with manual screening 3.6 g/dL 3.2-5.0 [facility] Thin prep Papanicolaou smear with manual screening 13 U/L 15-37 [facility] Thin prep Papanicolaou smear with manual screening 8 5-15 [facility] Thin prep Papanicolaou smear with manual screening 277 mOsm/KG 275-295 [facility] Urine osmolality measurement Ordered By: Anthony Morris on 12-08-2023 Osmolality (U) [Osmolality] 671 mOsm/KG >50 [facility] Comment on above: Normal Urine Referen ce Ranges Random: 50 - 1200 mOsm/kg H20 depending on fluid intake Random: >850 mOsm/kg after 12 hour fluid restriction 24 hour: ~300 - 900 mOsm/kg H2O Very low density lipoprotein (VLDL) cholesterol measurementOrdered By: Anthony Morris on 12-08-2023 Cholesterol in VLDL Calc [Moles/Vol] 35 mg/dL 5-40 [facility] Absolute lymphocyte countOrd ered By: Anthony Morris on 06-30-2023 Lymphocytes Auto (Unsp spec) [#/Vol] 2.09 10*3/uL 0.83-4.51 [facility] Basophil percentageOrdered B y: Anthony Morris on 06-30-2023 Basophils/100 WBC (Bld) 0.3 % 0-1 [facility] Eosinophils/100 WBC (Bld) 2.5 % 0-5 [facility] Neutrophils (Bld) [#/Vol] 4.0 10*3/uL 2.0-7.7 [facility] Neutrophils/100 WBC (Bld) 58.2 % 47-70 [facility] WBC (Bld) [#/Vol] 6.9 10*3/uL 4.4-11.0 [facility] Blood erythrocytes count (nu mber/volume)Ordered By: Anthony Morris on 06-30-2023 RBC (Bld) [#/Vol] 4.39 10*6/uL 4.2-5.4 [facility] Blood hemoglobin measurement (mass/volume)Ordered By: Anthony Morris on 06-30-2023 Hemoglobin (Bld) [Mass/Vol] 13.4 g/dL 12.0-15.0 [facility] Blood lymphocytes/100 leukoc ytesOrdered By: Anthony Morris on 06-30-2023 Lymphocytes/100 WBC (Bld) 30.5 % 19-41 [facility] Blood monocytes/100 leukocyt esOrdered By: Anthony Morris on 06-30-2023 Monocytes/100 WBC (Bld) 7.9 % 0-10 [facility] Blood platelet mean volumeOr dered By: Anthony Morris on 06-30-2023 Platelet mean volume (Bld) [Entitic vol] 9.0 fL 6.2-12.0 [facility] Determination of erythrocyte mean corpuscular volume (MCV)Ordered By: Anthony Morris on 06-30-2023 MCV (RBC) [Entitic vol] 88.4 fL 81-99 [facility] Hematocrit Auto (Bld) [Volum e fraction]Ordered By: Anthony Morris on 06-30-2023 Hematocrit (Bld) [Volume fraction] 38.8 % 37-47 [facility] Laboratory - Hematology and Cell countsOrdered By: [facility] on 06-30-2023 Erythrocyte distribution width (RBC) [Entitic vol] 39.3 fL 35.1-43.9 [facility] Erythrocyte distribution width (RBC) [Ratio] 12.2 % 11.6-14.6 [facility] Immature granulocytes/100 WBC (Bld) 0.600 % 0.0-0.9 [facility] Comment on above: IG% - Immature Granu locytes (promyelocytes, myelocytes and metamyelocytes) > 1% indicates that a LEFT SHIFT is Present. MCH (RBC) [Entitic mass] 30.5 pg 27.0-32.0 [facility] Nucleated RBC/100 WBC (Bld) [Ratio] 0 % 0-5 [facility] MCHC Auto (RBC) [Mass/Vol]Or dered By: Anthony Morris on 06-30-2023 MCHC (RBC) [Mass/Vol] 34.5 g/dL 32-36 [facility] Platelets bldOrdered By: Anthony Morris on 06-30-2023 Platelets (Bld) [#/Vol] 359 10*3/uL 150-450 [facility] Whole blood hemoglobin A1c/t otal hemoglobin ratio (mass fraction)Ordered By: Anthony Morris on 06-30-2023 HbA1c (Bld) [Mass fraction] 5.5 % 3.8-5.6 [facility] Comment on above: Normal < 5.7 % Predi abetic 5.7 - 6.4 % Diabetic >or= 6.5 % Please note range changes. Basophil percentageOrdered B y: Anthony Morris on 06-25-2023 Bilirubin [Mass/Vol] 0.20 mg/dL 0.20-1.00 [facility] Comment on above: For patients on eltr ombopag therapy, use of Dimension [place] TBIL is not recommended. Chloride [Moles/Vol] 89 mmol/L 98-107 [facility] Glucose [Mass/Vol] 100 mg/dL 74-106 [facility] Comment on above: Fasting Glucose resu lt from 100 to 125 mg/dL suggests IMPAIRED HOMEOSTASIS per A.D.A. criteria. Potassium [Moles/Vol] 4.1 mmol/L 3.5-5.1 [facility] Protein [Mass/Vol] 7.1 g/dL 6.4-8.2 [facility] Sodium [Moles/Vol] 124 mmol/L 136-145 [facility] Laboratory - Chemistry and C hemistry - challengeOrdered By: Anthony Morris on 06-25-2023 ALP [Catalytic activity/Vol] 78 U/L 45-117 [facility] ALT [Catalytic activity/Vol] 23 U/L 13-56 [facility] CO2 [Moles/Vol] 29.0 mmol/L 21.0-32.0 [facility] Globulin (S) [Mass/Vol] 3.6 g/dL 2.2-4.2 [facility] Urea nitrogen/Creatinine [Mass ratio] 13.7 mg/mg 10-20 [facility] No Panel InformationOrdered By: Anthony Morris on 06-25-2023 Estimated GFR (MDRD) Amer 126 mL/min >60 [facility] Comment on above: GFR Calc Estimated GFR (MDRD) Non-Af Amer 104 mL/min >60 [facility] Comment on above: Non- GFR Calc Thyroid Stimulating Hormone (TSH) 2.21 uIU/mL 0.358-3.74 [facility] Serum or plasma albumin renetta urement (mass/volume)Ordered By: Anthony Morris on 06-25-2023 Albumin [Mass/Vol] 3.5 g/dL 3.2-5.0 [facility] Serum or plasma albumin/glob ulin mass ratioOrdered By: Anthony Morris on 06-25-2023 Albumin/Globulin [Mass ratio] 1.0 {ratio} 0.9-2.4 [facility] Serum or plasma calcium renetta urement (mass/volume)Ordered By: Anthony Morris on 06-25-2023 Calcium [Mass/Vol] 9.3 mg/dL 8.5-10.1 [facility] Serum or plasma creatinine m easurement (mass/volume)Ordered By: Anthony Morris on 06-25-2023 Creatinine [Mass/Vol] 0.66 mg/dL 0.55-1.02 [facility] Comment on above: The validity of the calculated GFR & GFRAA in patients over 70 years has not been determined. Clinical correlation is essential. Serum or plasma urea nitroge n measurement (mass/volume)Ordered By: Anthony Morris on 06-25-2023 Urea nitrogen [Mass/Vol] 9 mg/dL 7-18 [facility] Thin prep Papanicolaou smear with manual screeningOrdered By: Anthony Morris on 06-25-2023 Thin prep Papanicolaou smear with manual screening 15 U/L 15-37 [facility] Thin prep Papanicolaou smear with manual screening 6 5-15 [facility] Absolute lymphocyte countOrd ered By: Anthony Morris on 12-02-2022 Lymphocytes Auto (Unsp spec) [#/Vol] 1.79 10*3/uL 0.83-4.51 [facility] Basophil percentageOrdered B y: Anthony Morris on 12-02-2022 Basophils/100 WBC (Bld) 0.4 % 0-1 [facility] Bilirubin [Mass/Vol] 0.30 mg/dL 0.20-1.00 [facility] Comment on above: For patients on eltr ombopag therapy, use of Dimension [place] TBIL is not recommended. Chloride [Moles/Vol] 95 mmol/L 98-107 [facility] Eosinophils/100 WBC (Bld) 3.0 % 0-5 [facility] Glucose [Mass/Vol] 94 mg/dL 74-106 [facility] Neutrophils (Bld) [#/Vol] 4.4 10*3/uL 2.0-7.7 [facility] Neutrophils/100 WBC (Bld) 62.8 % 47-70 [facility] Potassium [Moles/Vol] 3.8 mmol/L 3.5-5.1 [facility] Protein [Mass/Vol] 7.5 g/dL 6.4-8.2 [facility] Sodium [Moles/Vol] 135 mmol/L 136-145 [facility] WBC (Bld) [#/Vol] 7.0 10*3/uL 4.4-11.0 [facility] Blood erythrocytes count (nu mber/volume)Ordered By: Anthony Morris on 12-02-2022 RBC (Bld) [#/Vol] 4.65 10*6/uL 4.2-5.4 [facility] Blood hemoglobin measurement (mass/volume)Ordered By: Anthony Morris on 12-02-2022 Hemoglobin (Bld) [Mass/Vol] 14.2 g/dL 12.0-15.0 [facility] Blood lymphocytes/100 leukoc ytesOrdered By: Anthony Morris on 12-02-2022 Lymphocytes/100 WBC (Bld) 25.5 % 19-41 [facility] Blood monocytes/100 leukocyt esOrdered By: Anthony Morris on 12-02-2022 Monocytes/100 WBC (Bld) 7.4 % 0-10 [facility] Blood platelet mean volumeOr dered By: Anthony Morris on 12-02-2022 Platelet mean volume (Bld) [Entitic vol] 9.6 fL 6.2-12.0 [facility] Determination of erythrocyte mean corpuscular volume (MCV)Ordered By: Anthony Morris on 12-02-2022 MCV (RBC) [Entitic vol] 88.0 fL 81-99 [facility] Hematocrit Auto (Bld) [Volum e fraction]Ordered By: Anthony Morris on 12-02-2022 Hematocrit (Bld) [Volume fraction] 40.9 % 37-47 [facility] - Chemistry and C hemistry - challengeOrdered By: Anthony Morris on 12-02-2022 ALP [Catalytic activity/Vol] 73 U/L 45-117 [facility] ALT [Catalytic activity/Vol] 28 U/L 13-56 [facility] CO2 [Moles/Vol] 32.0 mmol/L 21.0-32.0 [facility] Globulin (S) [Mass/Vol] 3.8 g/dL 2.2-4.2 [facility] Urea nitrogen/Creatinine [Mass ratio] 20.9 mg/mg 10-20 [facility] - Hematology and Cell countsOrdered By: Anthony Morris on 12-02-2022 Erythrocyte distribution width (RBC) [Entitic vol] 40.3 fL 35.1-43.9 [facility] Erythrocyte distribution width (RBC) [Ratio] 12.5 % 11.6-14.6 [facility] Immature granulocytes/100 WBC (Bld) 0.900 % 0.0-0.9 [facility] Comment on above: IG% - Immature Granu locytes (promyelocytes, myelocytes and metamyelocytes) > 1% indicates that a LEFT SHIFT is Present. MCH (RBC) [Entitic mass] 30.5 pg 27.0-32.0 [facility] Nucleated RBC/100 WBC (Bld) [Ratio] 0 % 0-5 [facility] MCHC Auto (RBC) [Mass/Vol]Or dered By: Anthony Morris on 12-02-2022 MCHC (RBC) [Mass/Vol] 34.7 g/dL 32-36 [facility] No Panel InformationOrdered By: Anthony Morris on 12-02-2022 Estimated GFR (MDRD) Amer 114 mL/min >60 [facility] Comment on above: GFR Calc Estimated GFR (MDRD) Non-Af Amer 95 mL/min >60 [facility] Comment on above: Non- GFR Calc Thyroid Stimulating Hormone (TSH) 3.32 uIU/mL 0.358-3.74 [facility] Vitamin D 25-Hydroxy 23.7 ng/mL [facility] Comment on above: Vitamin D 25(OH) Sta tus Range Deficiency <20 ng/mL (50nmol/L) Insufficiency 20 - 30 ng/mL (50 - 75 nmol/L) Sufficiency 30 - 100 ng/mL (75 - 250 nmol/L) Toxicity >100 ng/mL (>250 nmol/L) Platelets bldOrdered By: Anthony Morris on 12-02-2022 Platelets (Bld) [#/Vol] 364 10*3/uL 150-450 [facility] Serum or plasma albumin renetta urement (mass/volume)Ordered By: Anthony Morris on 12-02-2022 Albumin [Mass/Vol] 3.7 g/dL 3.2-5.0 [facility] Serum or plasma albumin/glob ulin mass ratioOrdered By: Anthony Morris on 12-02-2022 Albumin/Globulin [Mass ratio] 1.0 {ratio} 0.9-2.4 [facility] Serum or plasma calcium renetta urement (mass/volume)Ordered By: Anthony Morris on 12-02-2022 Calcium [Mass/Vol] 9.5 mg/dL 8.5-10.1 [facility] Serum or plasma creatinine m easurement (mass/volume)Ordered By: Anthony Morris on 12-02-2022 Creatinine [Mass/Vol] 0.72 mg/dL 0.55-1.02 [facility] Comment on above: The validity of the calculated GFR & GFRAA in patients over 70 years has not been determined. Clinical correlation is essential. Serum or plasma urea nitroge n measurement (mass/volume)Ordered By: Anthony Morris on 12-02-2022 Urea nitrogen [Mass/Vol] 15 mg/dL 7-18 [facility] Thin prep Papanicolaou smear with manual screeningOrdered By: Anthony Morris 12-02-2022 Thin prep Papanicolaou smear with manual screening 15 U/L 15-37 [facility] Thin prep Papanicolaou smear with manual screening 8 5-15 [facility] Documentation of current medications (procedure) Done Invalid Interpretation Code [facility] Work Phone: Fall risk assessment No Invalid Interpretation Code [facility] Work Phone: Protein mass conc Done [facility] Work Phone: Tobacco smoking status TNIS Never Invalid Interpretation Code [facility] Work Phone: Tobacco smoking status NHIS Never smoker [facility] Work Phone: Tobacco use [facility] Never smoker Invalid Interpretation Code [facility] Work Phone: Vital Signs Date Time Vital Sign Value Performing Clinician Faci lity 03-03-2024 11:11-0400 Body height 154.[address] Anthony Morris Work Phone: [facility] 03-03-2024 11:03-0400 Body mass index (BMI) [Ratio] 48.7 kg/m2 Dr. Anthony Morris Work Phone: [facility] 03-03-2024 11:03-0400 Body weight 117.[address] Anthony Morris Work Phone: [facility] 03-03-2024 11:03-0400 Diastolic blood pressure 74 mm[Hg] Dr. Anthony Morris Work Phone: [facility] 03-03-2024 11:03-0400 Systolic blood pressure 116 mm[Hg] Dr. Anthony Morris Work Phone: [facility] 05-14-2017 09:50-0400 BMI (Body Mass Index) 45.19 kg/m2 Vane Ramirez LPN [facility] Work Phone: 05-14-2017 09:50-0400 Body Temperature 96.2 [degF] Vane Ramirez LPN [facility] Work Phone: 05-14-2017 09:50-0400 BP Diastolic 80 mm[Hg] Vane Ramirez LPN [facility] Work Phone: 05-14-2017 09:50-0400 BP Systolic 120 mm[Hg] Vane Ramirez LPN [facility] Work Phone: 05-14-2017 09:50-0400 Height 152.4 cm Vane Ramirez LPN [facility] Work Phone: 05-14-2017 09:50-0400 Pulse (Heart Rate) 78 /min Vane Ramirez LPN [facility] Work Phone: 05-14-2017 09:50-0400 Pulse Oximetry 98 % Vane Ramirez LPN [facility] Work Phone: 05-14-2017 09:50-0400 Respiratory Rate 16 /min Vane Ramirez LPN [facility] Work Phone: 05-14-2017 09:50-0400 Weight 104.96 kg Vane Ramirez LPN [facility] Work Phone: Encounters Encounter Date Encounter Type Care Provider Facility Start: 05-05-2025 ambulatory Anthony Chi Arturo Facility:[facility] Start: 04-27-2025 End: 04-27-2025 ambulatory Anthony Chi Arturo Facility:[facility] Start: 03-16-2025 Encounter for gynecological examination (general) (routine) without abnormal findings Emmy Mcnulty NP [facility] Start: 03-16-2025 End: 03-16-2025 ambulatory Anthony Chi Arturo Facility:[facility] Start: 03-16-2025 End: 03-16-2025 ambulatory Anthony Chi Arturo Facility:[facility] Start: 03-15-2025 End: 03-15-2025 ambulatory Anthony Chi Arturo Facility:[facility] Start: 03-09-2025 End: 03-09-2025 ambulatory Anthony Chi Arturo Facility:[facility] Start: 01-27-2025 End: 01-27-2025 ambulatory Anthony Chi Arturo Facility:[facility] Start: 01-05-2025 End: 01-05-2025 ambulatory Anthony Chi Arturo Facility:[facility] Start: 12-15-2024 End: 12-15-2024 ambulatory Anthony Chi Arturo Facility:[facility] Start: 11-14-2024 End: 11-14-2024 ambulatory Maria Melara Facility:[facility] Start: 11-03-2024 End: 11-03-2024 ambulatory Maria Bell Facility:[facility] Start: 09-01-2024 End: 09-01-2024 ambulatory Anthony Chi Arturo Facility:[facility] Start: 03-03-2024 End: 03-03-[address] Anthony Morris Work Phone: [facility] Work Phone: Start: 03-03-2024 End: 03-03-[address] Anthony Morris Work Phone: [facility] Work Phone: Start: 03-03-2024 End: 03-03-[address] Anthony Morris Work Phone: [facility] Work Phone: Start: 12-08-2023 End: 12-08-2023 ambulatory [facility] Work Phone: Start: 12-08-2023 End: 12-08-2023 [facility] Start: 06-30-2023 End: 06-30-2023 ambulatory [facility] Work Phone: Start: 06-30-2023 End: 06-30-2023 [facility] Start: 06-25-2023 End: 06-25-2023 ambulatory [facility] Work Phone: Start: 06-25-2023 End: 06-25-2023 [facility] Start: 12-02-2022 End: 12-02-2022 ambulatory [facility] Work Phone: Start: 12-02-2022 End: 12-02-2022 [facility] Procedures Date Procedure Procedure Detail Performing Clinician Start: 03-03-2024 Screening mammography Andrea Morris Work Phone: Plan of Treatment Date Care Activity Detail Author Start: 05-14-2017 End: 05-14-2017 Appointment Appointment [facility] Work Phone: [facility] Work Phone: Payers Date Payer Category Payer Medicaid [id number] 2024 Medicare [id number] 2024 Self-pay [id number] Medicare MEDICARE PART A B [id number] 2 [id number] Unknown YESI [id number] Unknown [id number] 2.16.8 [id number] Unknown [id number] 2.16.8 [id number] Unknown [id number] 2.16.8 [id number] Unknown [id number] 2.16.8 [id number] Unknown [id number] 2.16.8 [id number] Unknown [id number] 2.16.8 [id number] Unknown [id number] 2.16.8 [id number] Unknown [id number] 2.16.8 [id number] Unknown [id number] 2.16.8 [id number] Unknown [id number] 2.16.8 [id number] Unknown [id number] 2.16.8 [id number] Unknown [id number] 2.16.8 [id number] Social History Date Type Detail Facility Start: 07-23-2021 End: 03-03-2024 Tobacco smoking status TNIS Unknown if ever smoked [facility] Start: 1980 Sex Assigned At Female [facility] Evaluation note Note Date & Type Note Facility Evaluation note No assessment information availa ble [facility] Work Phone: Evaluation note Note Date & Type Note Facility Evaluation note Diagnosis Onset Date Encounter for routine gyneco logical examination noneactive [facility] Work Phone: Chief Complaint and Reason for Visit 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 Anthony Morris MD Family Provider Active Dr. Anthony Morris MD Primary Care Provider Active Team Status: Inactive Member Role Status Dates Dr. Anthony Morris MD Primary Care Provider Active Anthony Morris MD Attending Provider Active Team Status: Inactive Member Role Status Dates Dr. Anthony Morris MD Primary Care Provider, Attending Provider Active Team Status: Inactive Member Role Status Dates Dr. Anthony Morris MD Primary Care Provider, Referring Provider Active Emmy Mcnulty COTTON PULLER, COTTON PULLER-C Attending Provider Active Team Status: Inactive Member Role Status Dates Dr. Anthony Morris MD Primary Care Provi albert, Attending Provider, Referring Provider Active Goals (unrecognized section and content) Goals may be documented in a n alternate sectionGoals may be documented in an alternate sectionGoals may be documented in an alternate sectionGoals may be documented in an alternate sectionGoals may be documented in an alternate section INFORMATION SOURCE (unrecogn ized section and content) DATE CREATED AUTHOR 05/04/2025 [facility] FOR RECORDS PERTAINING TO PATIENTS WHO ARE OR HAVE BEEN ENROLLED IN A CHEMICAL DEPENDENCY/SUBSTANCEABUSE PROGRAM, SOME INFORMATION MAY BE OMITTED. This clinical summary was aggregated from multiple sources. Caution should be exercised in using it in the provision of clinical care. This summary normalizes information from multiple sources, and as a consequence, information in this document may materially change the coding, format and clinical context of patient data. In addition, data may be omitted in some cases. CLINICAL DECISIONS SHOULD BE BASED ON THE PRIMARY CLINICAL RECORDS. [employer] provides no warranty or guarantee of the accuracy or completeness of information in this document.
== END | disposition home or self-care (01) ==
LOC: OPBI 10:14
PROVIDERS: PCP Family Medicine Geriatric Medicine; Referring Provider Nurse Practitioner Women's Health; Visit Provider Nurse Practitioner Women's Health
DX: Z12.31 Encounter for screening mammogram for malignant neoplasm of breast (principal)
CPT/HCPCS: 77063; 77067